=== PATIENT | male | born 1940 | race Caucasian/White ===

== ENCOUNTER → 2016-07-22 | Outpatient (CLI) | payer MEDICARE, OTHER ==
[~2016-07-22] MED LIST: APIX5TAB PO; ASCO100083 PO; ASP325TEC PO; ASPI-983 PO; ASPI-999 PO; BENEFIBER; CARV6.25 PO; CARV6.252 PO; CEFU500T5 PO; CLOP75TA PO; CLOP75TA28 PO; DICL50TA4 PO; DIGO125T PO; DIGO125T18 PO; DIGO250T PO; DIGO250T15 PO; DILT120C PO; DILT120C63 PO; DOCU100C37 PO; DONE5TAB8 PO; ENOX100D4 SC; FAMO20TA5 PO; FEXO-14 PO; FRSM20T PO; FURO20TA4 PO; FURO40TA4 PO; GARL1CAP7 PO; GARLIC; HYDR-3812 PO; IBUPROFEN; IPRA3AMP IH; IPRA3AMP INH; ISM30TCR PO; ISOS30TA3 PO; LEVO750T39 PO; LISI-556 PO; LISI5TAB PO; LOSA25TA21 PO; MAGN400T6 PO; METO-333 PO; METO2.5T PO; MYLANTA; NTR.4SL SL; OMEG1CAP74 PO; POTA10CA43 PO; POTA10TA10 PO; SACU1TAB PO; SIMV20TA3 PO; SIMV40TA4 PO; WARF-48 PO; WARF10TA PO; WARF7.5T49 PO
--- NOTE | 2016-07-23 06:57 | ECHOCARDIOGRAPHY REPORT ---
DATE OF SERVICE: 07/22/2016 2D ECHOCARDIOGRAM REFERRING PHYSICIAN: Dr. Nola Perez. INDICATION: Congestive heart failure. MEASUREMENT: LVID end diastolic 5.8. IVS thickness 0.9. LVPW thickness 1.0. Left atrial diameter of 4.4. Ejection fraction 35%. FINDINGS: 1. The left ventricle is dilated with diffuse left ventricular hypokinesia, more pronounced at the anterior wall, anterolateral wall, anterior septum and true lateral wall. Systolic function is reduced with estimated ejection fraction 35%, no significant change compared to the study of 02/2016. 2. The left atrium is dilated. No clot or thrombus were seen within the left atrium. 3. The right atrium and right ventricle are prominent. No clots or thrombus were seen within the right side, pacemaker leads were noted in the right heart chambers. 4. 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 No mitral valve prolapse. No mitral valve stenosis. 5. Aortic valve is trileaflet with normal opening and closing pattern, mild aortic regurgitation noted by color Doppler flow. 6. Tricuspid valve is normal in morphology with mild tricuspid regurgitation noted by color Doppler flow. Doppler across the tricuspid valve estimated pulmonary artery pressure of 9+ right atrial pressure. 7. Pulmonic valve is functioning normally. 8. No pericardial effusion. CONCLUSION: 1. Dilated left ventricle with diffuse left ventricular hypokinesia, more pronounced at the anterior wall, anterolateral wall, anterior septum, true lateral wall, systolic function is reduced with estimated ejection fraction 35%, no significant change compared to the study of 02/2016. 2. Left atrial dilatation with prominent right heart chambers. 3. Mild mitral regurgitation, mild tricuspid regurgitation. 4. Estimated pulmonary artery pressure of 15 mmHg. Job ID: [id number] DocumentID: [id number] Dictated Date: 07/22/2016 15:13:58 Telephone Sterilizer Date: 07/22/2016 21:50:04 Dictated By: JEIMY WAGNER MD
== END ==
LOC: CARD 10:27
PROVIDERS: ATTEND Internal Medicine Cardiovascular Disease
DX: I25.10 Atherosclerotic heart disease of native coronary artery without angina pectoris (principal); I50.22 Chronic systolic (congestive) heart failure; I65.23 Occlusion and stenosis of bilateral carotid arteries; I48.0 Paroxysmal atrial fibrillation; R06.02 Shortness of breath
CPT/HCPCS: 93306

== ENCOUNTER → 2018-06-01 | Outpatient (CLI) | payer MEDICARE, OTHER ==
[~2018-06-01] MED LIST changes: +ACHD5005 PO; +DILT-27 PO; -DILT120C PO; -DILT120C63 PO; +DILT120C94 PO; -HYDR-3812 PO; -IPRA3AMP IH; -IPRA3AMP INH; +IPRA3AMP31 IH; +IPRA3AMP31 INH; -LOSA25TA21 PO; +LOSA25TA41 PO
== END ==
LOC: CARD 12:08
PROVIDERS: ATTEND Physician Assistant
DX: I25.10 Atherosclerotic heart disease of native coronary artery without angina pectoris (principal); I65.23 Occlusion and stenosis of bilateral carotid arteries; R07.9 Chest pain, unspecified; I50.22 Chronic systolic (congestive) heart failure; R06.02 Shortness of breath; I08.3 Combined rheumatic disorders of mitral, aortic and tricuspid valves
CPT/HCPCS: 93306

== ENCOUNTER → 2018-06-02 | Outpatient (CLI) | payer MEDICARE, OTHER ==
[~2018-06-02] VITALS: Ht 182.9 cm; Wt 86.2 kg
[~2018-06-02] MED LIST changes: +CATHETER FLUSH 10 ML SYR IV PRN; +REGADENOSON 0.4 MG/5 ML SYR (LEXISCAN) IV ONE
[2018-06-02 12:45] VITALS: BP 121/84
--- NOTE | 2018-06-03 06:36 | STRESS TEST ---
DATE OF SERVICE: 06/02/2018 LEXISCAN MYOVIEW STRESS TEST REPORT REFERRING PHYSICIAN: Dr. Perez. Baseline heart rate is 92. Baseline blood pressure 139/81. Baseline EKG is ventricular paced rhythm with right bundle branch block morphology. In summary, the patient was injected with 10.77 mCi of technetium-99 Myoview and the resting images were obtained. Then, the patient received 0.4 mg of Lexiscan followed by 31.7 mCi of technetium-99 Myoview. Throughout the test, there were no EKG changes. The resting and stress images were reviewed and compared in the short axis, horizontal long axis, and vertical long axis views. Review of the images showed fix defect involving the whole inferior wall and inferolateral wall with subtle betsy-infarct ischemia. SSS is 21. SDS 2. TID value 0.89. On the gated images, the left ventricle is dilated with severe diffuse left ventricular hypokinesia, more pronounced at the inferior wall. Calculated ejection fraction 35%. CONCLUSION: 1. The patient tolerated Lexiscan well. 2. Total infarction of the whole inferior wall and inferolateral segment with mild periinfarct ischemia. 3. Dilated left ventricle with diffuse left ventricular hypokinesia, more pronounced at the inferior wall. Calculated ejection fraction 35%. Job ID: [id number] DocumentID: [id number] Dictated Date: 06/03/2018 06:19:04 Profiling Machine Setup Operator Date: 06/03/2018 06:35:02 Dictated By: JEIMY WAGNER MD
== END ==
LOC: CARD 10:42
PROVIDERS: ATTEND Physician Assistant
DX: I25.10 Atherosclerotic heart disease of native coronary artery without angina pectoris (principal); R07.9 Chest pain, unspecified; I50.9 Heart failure, unspecified; R06.02 Shortness of breath
CPT/HCPCS: 78452; 93017

== ENCOUNTER → 2020-07-19 | Outpatient (CLI) | payer MEDICARE, OTHER ==
[~2020-07-19] MED LIST changes: +ASPI-1238 PO; -ASPI-983 PO; -CATHETER FLUSH 10 ML SYR IV PRN; -DIGO250T PO; +DIGO250T3 PO; +DILT120C88 PO; -DILT120C94 PO; -ISOS30TA3 PO; +ISOS30TA82 PO; -LISI-556 PO; +LISI-729 PO; -MAGN400T6 PO; +MAGN400T8 PO; -REGADENOSON 0.4 MG/5 ML SYR (LEXISCAN) IV ONE; -SACU1TAB PO; +SACU1TAB2 PO; +SIMV20TA26 PO; -SIMV20TA3 PO; +SIMV40TA25 PO; +WARF7.5T3 PO; -WARF7.5T49 PO
== END ==
LOC: CARD 14:00
PROVIDERS: ATTEND Internal Medicine Cardiovascular Disease
DX: I11.9 Hypertensive heart disease without heart failure (principal); I08.3 Combined rheumatic disorders of mitral, aortic and tricuspid valves; I25.10 Atherosclerotic heart disease of native coronary artery without angina pectoris
CPT/HCPCS: 93306

== ENCOUNTER 2022-02-06 20:22 | Observation (INO) | payer MEDICARE, OTHER ==
[~2022-02-06] VITALS: Ht 182.9 cm; Wt 85.9 kg
[~2022-02-06 20:22] MED LIST changes: +LEVO750T PO; -LEVO750T39 PO; -LISI-729 PO; +LISI5TAB20 PO; -MAGN400T8 PO; +MGX400T PO
--- NOTE | 2022-02-06 21:17 | Diagnostic Imaging Report ---
EXAMINATION: Chest 1 view HISTORY: Shortness of breath. COMPARISON: 02/19/2016. FINDINGS: The lung volumes are normal. Patchy opacities are seen in the left lung base. No large pleural effusion or pneumothorax is seen. The cardiac silhouette is prominent with post-CABG changes. Left pectoral ICD is in place. No acute osseous abnormality is seen. IMPRESSION: 1. Patchy left basilar opacities which may represent atelectasis or infection. 2. Cardiomegaly. No overt pulmonary edema. Dictated by: Dictated on workstation # [id number]
[2022-02-06 21:26] LABS: BASOPHILS # (AUTO) 0.1 10^3/uL (0.0-0.1); BASOPHILS % (AUTO) 1 % (0-10); EOSINOPHILS # (AUTO) 0.4 10^3/uL (0.0-0.3); EOSINOPHILS % (AUTO) 6 % (0-10); HEMATOCRIT 29 % (40-54); HEMOGLOBIN 9.1 g/dL (13.3-17.7); LYMPHOCYTES # (AUTO) 0.5 10^3/uL (1.0-4.0); LYMPHOCYTES % (AUTO) 6 % (12-44); MEAN CORPUSCULAR HEMOGLOBIN 28 pg (25-34); MEAN CORPUSCULAR HGB CONC 32 g/dL (32-36); MEAN CORPUSCULAR VOLUME 87 fL (80-99); MONOCYTES # (AUTO) 0.8 10^3/uL (0.0-1.0); MONOCYTES % (AUTO) 9 % (0-12); NEUTROPHILS # (AUTO) 6.2 10^3/uL (1.8-7.8); NEUTROPHILS % (AUTO) 78 % (42-75); PLATELET COUNT 95 10^3/uL (130-400)
[2022-02-06 21:38] LABS: ALBUMIN 4.1 GM/DL (3.2-4.5); POTASSIUM 4.7 MMOL/L (3.6-5.0)
[2022-02-06 21:39] LABS: CALCIUM 9.2 MG/DL (8.5-10.1)
[2022-02-06 21:41] LABS: TOTAL PROTEIN 6.8 GM/DL (6.4-8.2)
[2022-02-06 21:42] LABS: BILIRUBIN,TOTAL 2.4 MG/DL (0.1-1.0)
[2022-02-06 21:44] LABS: CREATININE SERUM 3.58 MG/DL (0.60-1.30)
[2022-02-06 21:47] LABS: MAGNESIUM 2.9 MG/DL (1.6-2.4)
[2022-02-06 22:12] LABS: ANISOCYTOSIS SLIGHT; EOSINOPHILS % (MANUAL) 6 %; HYPOCHROMASIA SLIGHT; LYMPHOCYTES % (MANUAL) 5 %; MONOCYTES % (MANUAL) 8 %; NEUTROPHILS % (MANUAL) 81 %; POIKILOCYTOSIS SLIGHT
[2022-02-06 22:15] LABS: INR 5.6 (0.8-1.4); PROTHROMBIN TIME PATIENT 50.3 SEC (12.2-14.7)
[2022-02-06 22:44] LABS: BILIRUBIN,URINE NEGATIVE (NEGATIVE); CLARITY,URINE CLEAR; COLOR,URINE YELLOW; GLUCOSE, URINE (UA) NEGATIVE (NEGATIVE); KETONES,URINE NEGATIVE (NEGATIVE); LEUKOCYTE ESTERASE ,URINE NEGATIVE (NEGATIVE); NITRITE,URINE NEGATIVE (NEGATIVE); PROTEIN,URINE NEGATIVE (NEGATIVE)
[2022-02-06 22:51] LABS: BACTERIA,URINE TRACE /HPF; HYALINE CASTS, URINE 0-2 /LPF
--- NOTE | 2022-02-06 23:15 | ED General ---
General Chief Complaint: General Problems/Pain Stated Complaint: LOW BP,ABD PAIN,LOW KIDNEY FUNCTION Nursing Triage Note: TO ED VIA POV AND WHEN NAME CALLED FOR TRIAGE PT STANDS AND BEGINS WALKING TOWARDS ROOM WITH PERSONAL WALKER, BUT FAMILY MEMBER DEMANDED W/C TO ROOM 6. PT STATES HE HAS HAD "TROUBLE BREATHING FOR A COUPLE WEEKS". O2 SAT 100% ON ROOM AIR. PT SPEAKS OVER PT AND ANSWERS MOST QUESTIONS. STATES, "HE WENT TO DR. JORDAN TODAY, SHE'S JUST A DOCTOR, AND SHE CALLED DR. SABA. 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 JORDAN CALLED HER WITH THE RESULTS AND STATED "HIS KIDNEY FUNCTION DETERIORATED AND HIS POTASSIUM WAS OKAY, BUT CHANCY". PT IS FULLY CAPABLE OF ANSWERING QUESTIONS AND HAD TO BE ASKED SEVERAL TIMES TO LET PT ANSWER TO COMPLETE TRIAGE. Source of Information: Patient Exam Limitations: No Limitations History of Present Illness Date Seen by Provider: Feb 06, 2022 Time Seen by Provider: 20:42 Initial Comments This 81-year-old gentleman presents to the emergency room at the direction of his primary team which includes Dr. Jordan, PCP in [place] and Dr. Saba ([facility] ologist). He reportedly was seen at Dr. JORDAN's office this morning and had lab work obtained as well as an abdominal ultrasound. There were concerns about his renal function, anemia, and ascites seen on the abdominal ultrasound. These are reportedly newer developments in his health history. In reviewing records from [place], he has a hemoglobin of 8.8 this morning down from 12.8 in March of last year. His creatinine is 3.64 this morning, up from 1.86 in September. He reports history of congestive heart failure and atrial fibrillation. He is anticoagulated with warfarin. INR was not performed on the labs this morning. He did take warfarin this morning. Patient describes occasionally feeling a little bit dizzy. He denies any acute fever. He has had minimal cough. He reports increased shortness of breath over the past 2 to 3 weeks which is intermittent. He has chronic musculoskeletal pain particularly in his back and shoulders, but no acute change. He has had recent weight gain and recent abdominal distention, but no associated pain in the abdomen. Patient takes metolazone twice weekly if his blood pressure is greater than 100 systolic. His last dose of metolazone was Thursday or Thursday. Allergies and Home Medications Allergies Coded Allergies: Penicillins (Verified Allergy, Unknown, 04/26/08) Patient Home Medication List Home Medication List Reviewed: Yes Aspirin (Aspirin EC) 81 Mg Tablet.dr, 81 MG PO EVERY EVENING, (Reported) Entered as Reported by: BHARAT NAYAK on 07/17/15 1348 Carvedilol (Carvedilol) 6.25 Mg Tablet, 6.25 MG PO BID, (Reported) Entered as Reported by: BHARAT NAYAK on 07/17/15 1241 Digoxin (Digox) 125 Mcg Tablet, 125 MCG PO DAILY, (Reported) Entered as Reported by: BHARAT NAYAK on 07/17/15 1241 Docusate Sodium (Docusate Sodium) 100 Mg Capsule, 200 MG PO HS, (Reported) Entered as Reported by: CAMI PRECIADO on 02/19/16 1225 Famotidine (Famotidine) 20 Mg Tablet, 20 MG PO BID, (Reported) Entered as Reported by: BHARAT NAYAK on 05/07/15 1112 Fexofenadine HCl (Heather Allergy) 60 Mg Tablet, 60 MG PO BID, (Reported) Entered as Reported by: HAYLEY HERRMANN on 05/04/15 1121 Furosemide (Furosemide) 40 Mg Tablet, 80 MG PO BID, (Reported) Entered as Reported by: BHARAT NAYAK on 10/04/15 0939 Hydrocodone Bit/Acetaminophen (Lortab 5 Mg Tablet) 1 Each Tablet, 0.5-1 TAB PO Q6H PRN for PAIN Prescribed by: HERO WORKMAN on 01/04/16 1239 Isosorbide Mononitrate (Isosorbide Mononitrate ER) 30 Mg Tab.er.24h, 30 MG PO DAILY, (Reported) Entered as Reported by: BHARAT NAYAK on 05/07/15 1112 Metolazone (Metolazone) 2.5 Mg Tablet, 2.5 MG PO UD, (Reported) Entered as Reported by: CAMI PRECIADO on 02/19/16 1225 [place]-3/Dha/Epa/Fish Oil (Fish Oil 1,000 Mg Softgel) 1,000 Mg Capsule, 1,000 MG PO HS, (Reported) Entered as Reported by: THERON RODRIGUEZ on 02/13/10 1006 Potassium Chloride (Potassium Chloride) 10 Meq Tablet.er, 10 MEQ PO DAILY, (Reported) Entered as Reported by: BHARAT NAYAK on 05/07/15 1112 Sacubitril/Valsartan (Entresto 24 mg-26 mg Tablet) 1 Each Tablet, 1 EACH PO BID Prescribed by: JEIMY SABA on 01/06/16 0909 Warfarin Sodium (Warfarin Sodium) 5 Mg Tablet, 10 MG PO UD, (Reported) Entered as Reported by: CAMI PRECIADO on 02/19/16 1225 Warfarin Sodium (Warfarin Sodium) 5 Mg Tablet, 7.5 MG PO UD, (Reported) Entered as Reported by: CAMI PRECIADO on 02/19/16 1225 Review of Systems Review of Systems Constitutional: no symptoms reported EENTM: no symptoms reported Respiratory: see HPI Cardiovascular: see HPI Gastrointestinal: see HPI Genitourinary: see HPI Musculoskeletal: no symptoms reported Skin: no symptoms reported Psychiatric/Neurological: No Symptoms Reported Hematologic/Lymphatic: See HPI Immunological/Allergic: no symptoms reported Past Afvkwvt-Gqxpvy-Gktlpy Hx Patient Social History Tobacco Use?: No Smoking Status: Former Smoker Substance use?: No Alcohol Use?: No Immunizations Up To Date Tetanus Booster (TDap): Unknown PED Vaccines UTD: No Influenza Vaccine Up-to-Date: No; Not Current COVID19 Vaccine Instrument Tester: STATES HAS HAD 2 VACCINES PLUS BOOSTER Seasonal Allergies Seasonal Allergies: Yes Past Medical History Surgeries: Yes Cardiac, CABG, Defibrillator, Eye Surgery, Gallbladder, Orthopedic (Back), Pacemaker Respiratory: Yes Sleep Apnea Currently Using CPAP: Yes (SENT IT BACK, BECAUSE PATIENT COULD NOT TOLERATE ) Currently Using BIPAP: No Cardiac: Yes (Congestive heart failure) Atrial Fibrillation, Chronic Edema/Swelling, Coronary Artery Disease, Heart Attack, High Cholesterol, Hypertension TIA Reproductive Disorders: No Sexually Transmitted Disease: No HIV/AIDS: No Genitourinary: Yes Benign Prostatic Hyperpl Gastrointestinal: Yes Liver Disease/Jaundice, Chronic Constipation, Pancreatitis, Gall Bladder Disease Musculoskeletal: Yes Arthritis, Chronic Back Pain Loss of Vision: Denies Hearing Impairment: Hard of Hearing Psychosocial: No Depression Recent Skin Changes Adverse Reaction/Blood Tranf: No Family Medical History Patient reports no known family medical history. No Pertinent Family Hx Physical Exam Vital Signs Vital Signs - First Documented 02/06/22 20:38 Temp 36.2 Pulse 90 Resp 16 B/P (MAP) 105/91 (96) Pulse Ox 100 O2 Delivery Room Air Capillary Refill : Less Than 3 Seconds Height, Weight, BMI Height: 6'0.00" Weight: 190lbs. 0.0oz. 86.129456ir; 24.00 BMI Method:Stated General Appearance: No Apparent Distress, WD/WN HEENT: PERRL/EOMI, Normal ENT Inspection, Other (Oropharynx somewhat dry) Neck: Normal Inspection; No JVD Respiratory: Lungs Clear, Normal Breath Sounds, No Accessory Muscle Use, No Respiratory Distress Cardiovascular: Regular Rate, Rhythm, No Edema, No Murmur, Other (Paced rhythm on monitor) Gastrointestinal: Normal Bowel Sounds, Non Tender, Soft, Distended Extremity: Normal Inspection, No Pedal Edema Neurologic/Psychiatric: Alert, Oriented x3, No Motor/Sensory Deficits, Normal Mood/Affect Skin: Normal Color, Warm/Dry Progress/Results/Core Measures Suspected Sepsis SIRS Temperature: Pulse: 90 Respiratory Rate: 16 Laboratory Tests 02/06/22 21:15: White Blood Count 8.0 Blood Pressure 105 /91 Mean: 96 Laboratory Tests 02/06/22 21:15: Creatinine 3.58H, INR Comment 5.6*H, Platelet Count 95L, Total Bilirubin 2.4H Results/Orders Lab Results Laboratory Tests Test 02/06/22 21:15 02/06/22 21:52 02/06/22 22:39 Range/Units White Blood Count 8.0 4.3-11.0 10^3/uL Red Blood Count 3.30 L 4.30-5.52 10^6/uL Hemoglobin 9.1 L 13.3-17.7 g/dL Hematocrit 29 L 40-54 % Mean Corpuscular Volume 87 80-99 fL Mean Corpuscular Hemoglobin 28 25-34 pg Mean Corpuscular Hemoglobin Concent 32 32-36 g/dL Red Cell Distribution Width 18.6 H 10.0-14.5 % Platelet Count 95 L 130-400 10^3/uL Mean Platelet Volume 13.0 H 9.0-12.2 fL Immature Granulocyte % (Auto) 0 % Neutrophils (%) (Auto) 78 H 42-75 % Lymphocytes (%) (Auto) 6 L 12-44 % Monocytes (%) (Auto) 9 0-12 % Eosinophils (%) (Auto) 6 0-10 % Basophils (%) (Auto) 1 0-10 % Neutrophils # (Auto) 6.2 1.8-7.8 10^3/uL Lymphocytes # (Auto) 0.5 L 1.0-4.0 10^3/uL Monocytes # (Auto) 0.8 0.0-1.0 10^3/uL Eosinophils # (Auto) 0.4 H 0.0-0.3 10^3/uL Basophils # (Auto) 0.1 0.0-0.1 10^3/uL Immature Granulocyte # (Auto) 0.0 0.0-0.1 10^3/uL Neutrophils % (Manual) 81 % Lymphocytes % (Manual) 5 % Monocytes % (Manual) 8 % Eosinophils % (Manual) 6 % Percent Immature Platelet Fraction 7.1 0.0-7.6 % Hypochromasia SLIGHT Poikilocytosis SLIGHT Anisocytosis SLIGHT Prothrombin Time 50.3 *H 12.2-14.7 SEC INR Comment 5.6 *H 0.8-1.4 Sodium Level 135 135-145 MMOL/L Potassium Level 4.7 3.6-5.0 MMOL/L Chloride Level 100 98-107 MMOL/L Carbon Dioxide Level 20 L 21-32 MMOL/L Anion Gap 15 H 5-14 MMOL/L Blood Urea Nitrogen 93 H 7-18 MG/DL Creatinine 3.58 H 0.60-1.30 MG/DL Estimat Glomerular Filtration Rate 16 BUN/Creatinine Ratio 26 Glucose Level 139 H 70-105 MG/DL Calcium Level 9.2 8.5-10.1 MG/DL Corrected Calcium 9.1 8.5-10.1 MG/DL Magnesium Level 2.9 H 1.6-2.4 MG/DL Total Bilirubin 2.4 H 0.1-1.0 MG/DL Aspartate Amino Transf (AST/SGOT) 31 5-34 U/L Alanine Aminotransferase (ALT/SGPT) 26 0-55 U/L Alkaline Phosphatase 75 40-136 U/L C-Reactive Protein High Sensitivity 0.56 H 0.00-0.50 MG/DL B-Type Natriuretic Peptide 1442.9 H <100.0 PG/ML Total Protein 6.8 6.4-8.2 GM/DL Albumin 4.1 3.2-4.5 GM/DL Digoxin Level 0.59 L 0.80-2.00 NG/ML Influenza Type A (RT-PCR) Not Detected Not Detecte Influenza Type B (RT-PCR) Not Detected Not Detecte SARS-CoV-2 RNA (RT-PCR) Not Detected Not Detecte Urine Color YELLOW Urine Clarity CLEAR Urine pH 6.0 5-9 Urine Specific [place] 1.015 L 1.016-1.022 Urine Protein NEGATIVE NEGATIVE Urine Glucose (UA) NEGATIVE NEGATIVE Urine Ketones NEGATIVE NEGATIVE Urine Nitrite NEGATIVE NEGATIVE Urine Bilirubin NEGATIVE NEGATIVE Urine Urobilinogen 0.2 < = 1.0 MG/DL Urine Leukocyte Esterase NEGATIVE NEGATIVE Urine RBC (Auto) NEGATIVE NEGATIVE Urine RBC NONE /HPF Urine WBC NONE /HPF Urine Squamous Epithelial Cells NONE /HPF Urine Crystals NONE /LPF Urine Bacteria TRACE /HPF Urine Casts PRESENT /LPF Urine Hyaline Casts 0-2 H /LPF Urine Mucus NEGATIVE /LPF Urine Culture Indicated NO My Orders Orders - KRISTAL POTTS MD [facility] [place] (02/06/22 20:56) Cbc With Automated Diff (02/06/22 20:56) Comprehensive Metabolic Panel (02/06/22 20:56) Magnesium (02/06/22 20:56) Protime With Inr (02/06/22 20:56) Ua Culture If Indicated (02/06/22 20:56) Ed Iv/Invasive Line Start (02/06/22 20:56) Chest 1 View, Ap/Pa Only (02/06/22 20:56) Manual Differential (02/06/22 21:15) Covid 19 Inhouse Test (02/06/22 21:48) Influenza A And B By Pcr (02/06/22 21:48) Hs C Reactive Protein (02/06/22 21:49) Ct Abdomen/Pelvis Wo (02/06/22 22:48) Digoxin (02/06/22 23:22) Ns Iv 1000 Ml (Sodium Chloride 0.9%) (02/07/22 00:30) Code/Resuscitation (02/07/22 00:32) Vital Signs/I&O 02/06/22 02/06/22 20:38 20:38 Temp 36.2 Pulse 90 Resp 16 B/P (MAP) 105/91 (96) Pulse Ox 100 O2 Delivery Room Air Room Air Capillary Refill : Less Than 3 Seconds Blood Pressure Mean: 96 Progress Note #1: Time: 23:26 Progress Note Labs from [place] were reviewed. Repeat labs were obtained. The creatinine and hemoglobin actually demonstrated improvement from earlier in the day. Patient has had no significant acute complaints since arrival. INR was found to be elevated at 5.6. Because of the elevated INR and ascites noted on ultrasound, we are obtaining a CT of the abdomen to ensure the abdominal fluid is not related to bleeding. Patient denies any abdominal pain at this time. Vital signs of been stable. His blood pressure has been low normotensive with systolic blood pressures in the 100s. Patient states this is his normal blood pressure. Progress Note #2: Time: 00:38 Progress Note After reviewing exam, vital signs, and labs with Dr. Cameron. It appears perhaps the best treatment course at this time is slow IV hydration. Patient does not appear to be in acute heart failure as there is no edema or congestion seen on the chest x-ray and he is not acutely short of breath at this time. He would actually probably benefit more from slow IV fluids. Normal saline at 75 mL/h is being ordered x1 L as a fluid challenge. We will monitor his renal function and heart failure with these fluids. INR will be checked again in the morning. Patient's most recent systolic blood pressures were around 90 systolic. He is asymptomatic with this blood pressure. This marginal blood pressure supports the need for hydration. I discussed CODE STATUS with the patient and he requests to be DNR. Diagnostic Imaging Diagonstic Imaging: Xray Plain Films/CT/US/NM/MRI: chest Comments Chest x-ray viewed by me and report reviewed. See report below: NAME: LADONNA ZEE [facility] REC#: [id number] PT STATUS: REG ER : 1940 PHYSICIAN: KRISTAL POTTS MD ADMIT DATE: 02/06/22/ER Signed Date of Exam:02/06/22 CHEST 1 VIEW, AP/PA ONLY EXAMINATION: Chest 1 view HISTORY: Shortness of breath. COMPARISON: 02/19/2016. FINDINGS: The lung volumes are normal. Patchy opacities are seen in the left lung base. No large pleural effusion or pneumothorax is seen. The cardiac silhouette is prominent with post-CABG changes. Left pectoral ICD is in place. No acute osseous abnormality is seen. IMPRESSION: 1. Patchy left basilar opacities which may represent atelectasis or infection. 2. Cardiomegaly. No overt pulmonary edema. Dictated by: Dictated on workstation # [id number] Dict: 02/06/222114 Trans: 02/06/222132 CVB [id number] Interpreted by: LUNA ALONZO DO Electronically signed by: LUNA ALONZO DO 02/06/222132 Departure Communication (Admissions) Time/Spoke to Admitting Phy: 00:10 Dr. Cameron Case was reviewed with Dr. Saba earlier in the evening at 2052. Impression Primary Impression: Acute on chronic renal failure Qualified Codes: N17.9 - Acute kidney failure, unspecified; N18.9 - Chronic kidney disease, unspecified Additional Impressions: Congestive heart failure Qualified Codes: I50.9 - Heart failure, unspecified Abdominal ascites Qualified Codes: R18.8 - Other ascites Supratherapeutic INR Disposition: ADMITTED INPATIENT Condition: Stable Admissions Decision to Admit Reason: Admit from ER (General) Decision to Admit/Date: Feb 07, 2022 Time/Decision to Admit Time: 00:10 Departure-Patient Inst. Referrals: JOCELYN OJRDAN MD (PCP/Family) Primary Care Physician Copy Copies To 1: JOCELYN JORDAN MD Copies To 2: JEIMY SABA MD, JOSHUA T MD Feb 06, 2022 23:15
[2022-02-07] MEDS ORDERED: NS IV 1000 ML 1,000 ML IV STA (00:30)
[2022-02-07 01:15] VITALS: BP 92/51
[2022-02-07 04:22] VITALS: BP 93/52
[2022-02-07 06:27] LABS: BASOPHILS # (AUTO) 0.1 10^3/uL (0.0-0.1); BASOPHILS % (AUTO) 1 % (0-10); HEMOGLOBIN 8.6 g/dL (13.3-17.7); MEAN CORPUSCULAR HEMOGLOBIN 27 pg (25-34)
[2022-02-07 06:30] LABS: EOSINOPHILS # (AUTO) 0.3 10^3/uL (0.0-0.3); EOSINOPHILS % (AUTO) 5 % (0-10); HEMATOCRIT 28 % (40-54); LYMPHOCYTES # (AUTO) 0.4 10^3/uL (1.0-4.0); LYMPHOCYTES % (AUTO) 6 % (12-44); MEAN CORPUSCULAR HGB CONC 31 g/dL (32-36); MEAN CORPUSCULAR VOLUME 88 fL (80-99); MEAN PLATELET VOLUME 12.2 fL (9.0-12.2); MONOCYTES # (AUTO) 0.6 10^3/uL (0.0-1.0); MONOCYTES % (AUTO) 10 % (0-12); NEUTROPHILS # (AUTO) 5.1 10^3/uL (1.8-7.8); NEUTROPHILS % (AUTO) 78 % (42-75); PLATELET COUNT 83 10^3/uL (130-400); WHITE BLOOD COUNT 6.5 10^3/uL (4.3-11.0)
[2022-02-07 06:44] LABS: CALCIUM 8.7 MG/DL (8.5-10.1); CREATININE SERUM 3.52 MG/DL (0.60-1.30); POTASSIUM 4.8 MMOL/L (3.6-5.0)
[2022-02-07 07:02] LABS: INR 6.3 (0.8-1.4); PROTHROMBIN TIME PATIENT 55.1 SEC (12.2-14.7)
--- NOTE | 2022-02-07 07:02 | History & Physical-Hospitalist ---
History of Present Illness HPI/Chief Complaint Patient is an 81-year-old male with past medical history of cardiomyopathy, hypertension, chronic kidney disease who presented to the emergency department due to abnormal labs. He states that he was seen by his primary care physician, Dr. Perez, due to abdominal bloating. Labs were drawn and abdominal ultrasound was done as an outpatient. His labs revealed worsening of his renal function and some ascites. Labs were repeated here and confirmed an acute kidney injury. He was also found to have a supratherapeutic INR. He was admitted for gentle IV fluids. This morning he reports feeling much better. We discussed his labs from yesterday to the emergency department and held today's are pending. We did discuss how we may need to hold some of his medications due to his acute kidney injury but will await his morning lab results to decide. Source: patient Date Seen 02/07/22 Time Seen by a Provider: 06:59 Attending Physician Nola Perez MD PCP Admitting Physician: Keenan Cameron MD Attending Physician: Keenan Cameron MD Referring Physician Date of Admission Feb 07, 2022 at 00:36 Home Medications & Allergies Home Medications Reviewed patient Home Medication Reconciliation performed by pharmacy medication reconciliations bio medical technician and/or nursing. Patients Allergies have been reviewed. Allergies Allergies Coded Allergies Penicillins (Verified Allergy, Unknown, 04/26/08) Past Wpxcpha-Rzlpcj-Dzlycv Hx Patient Social History Marrital Status: Employed/Student: retired Tobacco Use?: No Tobacco type used: Cigarettes Smoking Status: Former Smoker Smokeless Tobacco Frequency: Never a User Use of E-Cig and/or Vaping dev: No Substance use?: No Alcohol Use?: Yes Alcohol type: Beer Alcohol Frequency: Once in a while Pt feels they are or have been: No Immunizations Up To Date Tetanus Booster (TDap): Unknown Hepatitis A: No Hepatitis B: No PED Vaccines UTD: No Seasonal Allergies Seasonal Allergies: Yes Current Status Advance Directives: Yes Advance Directive Location: Unable to obtain copy Communicates: Verbally Primary Language: Danish Preferred Spoken Language: Danish Is interpretation needed?: No Sensory deficits: Vision impairment Implanted or Applied Medical D: Pacemaker Past Medical History Surgeries: Cardiac, CABG, Defibrillator, Eye Surgery, Gallbladder, Orthopedic (Back), Pacemaker Sleep Apnea Currently Using CPAP: Yes (SENT IT BACK, BECAUSE PATIENT COULD NOT TOLERATE ) Currently Using BIPAP: No Atrial Fibrillation, Chronic Edema/Swelling, Coronary Artery Disease, Heart Attack, High Cholesterol, Hypertension TIA Sexually Transmitted Disease: No HIV/AIDS: No Benign Prostatic Hyperpl Liver Disease/Jaundice, Chronic Constipation, Pancreatitis, Gall Bladder Disease Arthritis, Chronic Back Pain Loss of Vision: Denies Hearing Impairment: Hard of Hearing Depression Recent Skin Changes Adverse Reaction/Blood Tranf: No Family Medical History Reviewed Nursing Family Hx Patient reports no known family medical history. No Pertinent Family Hx Review of Systems Constitutional: No chills, No fever; malaise EENTM: no symptoms reported Respiratory: no symptoms reported Cardiovascular: no symptoms reported Gastrointestinal: other (distention) Genitourinary: no symptoms reported Musculoskeletal: no symptoms reported Skin: no symptoms reported Psychiatric/Neurological: No Symptoms Reported Physical Exam Physical Exam Vital Signs Vital Signs - First Documented 02/06/22 20:38 Temp 36.2 Pulse 90 Resp 16 B/P (MAP) 105/91 (96) Pulse Ox 100 O2 Delivery Room Air Capillary Refill : Less Than 3 Seconds Height, Weight, BMI Height: 6'0.00" Weight: 190lbs. 0.0oz. 86.344543xx; 25.67 BMI Method:Stated General Appearance: No Apparent Distress, Chronically ill HEENT: PERRL/EOMI, Moist Mucous Membranes, Scleral Icterus (L), Scleral Icterus (R) Neck: Normal Inspection, Supple Respiratory: Lungs Clear, No Accessory Muscle Use, No Respiratory Distress Cardiovascular: Regular Rate, Rhythm, No JVD, No Murmur Gastrointestinal: Normal Bowel Sounds, Soft, Distended Extremity: Normal Capillary Refill, Pedal Edema Neurologic/Psychiatric: Alert, Oriented x3, Normal Mood/Affect Skin: Warm/Dry, Jaundice Results Results/Procedures Labs Laboratory Tests 02/06/22 21:15 02/07/22 05:47 Patient resulted labs reviewed. Imaging: Reviewed Imaging Report Imaging [facility] [place], [place] NAME: HEIDIATIFLADONNA ORTEZ REC#: [id number] PT STATUS: REG ER : 1940 PHYSICIAN: KRISTAL POTTS MD ADMIT DATE: 02/06/22/ER Signed Date of Exam:02/06/22 CHEST 1 VIEW, AP/PA ONLY EXAMINATION: Chest 1 view HISTORY: Shortness of breath. COMPARISON: 02/19/2016. FINDINGS: The lung volumes are normal. Patchy opacities are seen in the left lung base. No large pleural effusion or pneumothorax is seen. The cardiac silhouette is prominent with post-CABG changes. Left pectoral ICD is in place. No acute osseous abnormality is seen. IMPRESSION: 1. Patchy left basilar opacities which may represent atelectasis or infection. 2. Cardiomegaly. No overt pulmonary edema. Dictated by: Dictated on workstation # [id number] Dict: 02/06/222114 Trans: 02/06/222132 CVB [id number] Interpreted by: LUNA ALONZO DO Electronically signed by: LUNA ALONZO DO 02/06/222132 [facility] [place] NAME: LADONNA ZEE [facility] REC#: [id number] PT STATUS: ADM Milagro : 1940 PHYSICIAN: KRISTAL POTTS MD ADMIT DATE: 02/07/22 Signed Date of Exam:02/06/22 CT ABDOMEN/PELVIS WO CT ABDOMEN/PELVIS WO TECHNIQUE: Unenhanced CT imaging of the abdomen and pelvis was performed. 2-D reformats are created and submitted for interpretation. Automatic exposure controls were utilized to optimize patient dose. INDICATION: Abdominal swelling COMPARISON: 05/11/2015 FINDINGS: Lower chest: Small left pleural effusion. Scattered areas of atelectasis present in the lung bases. Peritoneum: A small to moderate amount of simple appearing ascites is present. No loculated fluid collections or free intraperitoneal air. Liver and biliary system: Nodular liver is indicative of cirrhosis. No focal hepatic lesion is appreciated by noncontrast imaging. Cholecystectomy. No biliary duct dilatation. Spleen and Pancreas: Spleen is normal. Unenhanced pancreas is grossly normal. Adrenals: Normal. tract: No renal or ureteral calculi. No obstructive uropathy. There is a 3.8 x 3.5 cm exophytic cyst in the mid aspect of the right kidney. Urinary bladder is partially filled. Prostate is not enlarged. GI tract: Stomach is decompressed. No bowel obstruction. No pericolonic inflammatory changes. No features of acute appendicitis. Vasculature and Lymph nodes: Normal caliber aorta has severe calcification. No abdominal or pelvic lymphadenopathy. Musculoskeletal: No concerning osseous lesion. Multilevel laminectomies in the lower lumbar spine. IMPRESSION: 1. Cirrhosis with small to moderate amount of ascites. 2. Partially filled urinary bladder could account for wall thickening. Correlation with urinalysis is suggested to assess for cystitis. 3. Findings are in agreement with the preliminary report. Dictated by: Dictated on workstation # [id number] Dict: 02/07/22703 Trans: 02/07/22909 CV [id number] Interpreted by: CLAUS GARCIA MD Electronically signed by: CLAUS GARCIA MD 02/07/22909 Assessment/Plan Admission Diagnosis Acute on Chronic Kidney Disease Admission Status: Observation Reason for Inpatient Admission: see below Assessment and Plan Acute on Chronic Kidney Disease CHF HTN Ascites Creatinine stable Discussed with patient and and he is wanted to go home Offered home health and outpatient therapy orders- patient declined Discussed potential for hospice if patient not interested in therapy and strengthening- not yet ready for that but open to the idea Discussed respite care at [facility] as option for rest for and they will look into it Hold coumadin over the weekend and get INR on Thursday with Dr Saba Diagnosis/Problems Diagnosis/Problems (1) Abdominal ascites Status: Acute Qualifiers: Ascites type: other type Qualified Codes: R18.8 - Other ascites (2) Supratherapeutic INR (3) Acute on chronic renal failure Status: Acute Qualifiers: Acute renal failure type: unspecified Chronic kidney disease stage: unspecified stage Qualified Codes: N17.9 - Acute kidney failure, unspecified; N18.9 - Chronic kidney disease, unspecified (4) Congestive heart failure Status: Acute Qualifiers: Heart failure type: unspecified Heart failure chronicity: chronic Qualified Codes: I50.9 - Heart failure, unspecified (5) Chronic atrial fibrillation Status: Acute (6) Jaundice Status: Acute (7) Elevated bilirubin Status: Acute CHRISTA REAVES MD Feb 07, 2022 07:02
--- NOTE | 2022-02-07 07:13 | Diagnostic Imaging Report ---
CT ABDOMEN/PELVIS WO TECHNIQUE: Unenhanced CT imaging of the abdomen and pelvis was performed. 2-D reformats are created and submitted for interpretation. Automatic exposure controls were utilized to optimize patient dose. INDICATION: Abdominal swelling COMPARISON: 05/11/2015 FINDINGS: Lower chest: Small left pleural effusion. Scattered areas of atelectasis present in the lung bases. Peritoneum: A small to moderate amount of simple appearing ascites is present. No loculated fluid collections or free intraperitoneal air. Liver and biliary system: Nodular liver is indicative of cirrhosis. No focal hepatic lesion is appreciated by noncontrast imaging. Cholecystectomy. No biliary duct dilatation. Spleen and Pancreas: Spleen is normal. Unenhanced pancreas is grossly normal. Adrenals: Normal. tract: No renal or ureteral calculi. No obstructive uropathy. There is a 3.8 x 3.5 cm exophytic cyst in the mid aspect of the right kidney. Urinary bladder is partially filled. Prostate is not enlarged. GI tract: Stomach is decompressed. No bowel obstruction. No pericolonic inflammatory changes. No features of acute appendicitis. Vasculature and Lymph nodes: Normal caliber aorta has severe calcification. No abdominal or pelvic lymphadenopathy. Musculoskeletal: No concerning osseous lesion. Multilevel laminectomies in the lower lumbar spine. IMPRESSION: 1. Cirrhosis with small to moderate amount of ascites. 2. Partially filled urinary bladder could account for wall thickening. Correlation with urinalysis is suggested to assess for cystitis. 3. Findings are in agreement with the preliminary report. Dictated by: Dictated on workstation # [id number]
[2022-02-07 08:37] VITALS: BP 88/53
[2022-02-07] MEDS ORDERED: FUROSEMIDE 40 MG/4 ML INJ (LASIX) IVP SCH (08:45)
[2022-02-07] MEDS ORDERED: CATHETER FLUSH 10 ML SYR IV PRN (08:45)
[2022-02-07] MEDS ORDERED: SACU1TAB2 PO ×2 (11:55→13:10)
[2022-02-07] MEDS ORDERED: POTA-177 PO (11:55)
[2022-02-07] MEDS ORDERED: SPIR25TA5 PO (11:55)
[2022-02-07] MEDS ORDERED: ALLO300T2 PO (11:55)
[2022-02-07] MEDS ORDERED: SIMV10TA26 PO (11:55)
[2022-02-07] MEDS ORDERED: DIGO125T3 PO (11:55)
[2022-02-07] MEDS ORDERED: OMEG100032 PO ×2 (11:55)
[2022-02-07] MEDS ORDERED: CARV3.122 PO (11:55)
[2022-02-07] MEDS ORDERED: PANT40TA52 PO (11:55)
[2022-02-07] MEDS ORDERED: NF-ALLE180 PO (11:55)
[2022-02-07 12:00] VITALS: BP_SYST 74; BP_SYST 95; BP_DIAS 50; BP_DIAS 60
[2022-02-07] MEDS ORDERED: INSU100I32 SC (12:19)
--- NOTE | 2022-02-07 12:26 | Consultation-Cardiology ---
HPI-Cardiology Cardiology Consultation Date of Consultation 02/07/22 Date of Admission Time Seen by Provider: 12:21 Indication: Abdominal distention, ascites HPI 81 years old gentleman with history of cardiomyopathy, coronary artery disease, chronic kidney disease. Patient has been having increasing abdominal distention, generalized weakness and loss of energy, he was noted to have ascites and anemia. Elevated INR. Patient was instructed to come to the emergency room. On evaluation he was complaining of fatigue and tired. Denied any chest pain, no shortness of breath, no significant pedal edema. No syncope or near syncopal episodes. Home Medications & Allergies Allergies: Coded Allergies: Penicillins (Verified Allergy, Unknown, 04/26/08) Home Medication List Reviewed: Yes DGN-Pngsuz-Dkijlv Hx Patient Social History Marital Status: Employed/Student: retired Smoking Status: Former Smoker Type Used: Cigarettes, Smokeless Tobacco Recent Hopitalizations: Yes Have you traveled recently?: No Alcohol Use?: Yes Immunizations Up To Date Tetanus Booster (TDap): Unknown Past Medical History Discussed below Family Medical History Significant Family History: No Pertinent Family Hx Family History: Patient reports no known family medical history. Review of Systems-General Review of Systems Constitutional: see HPI, malaise, weakness EENTM: no symptoms reported Respiratory: see HPI; No cough; dyspnea on exertion; No hemoptysis, No orthopnea, No phlegm, No short of breath, No stridor, No wheezing, No other Cardiovascular: see HPI; No chest pain, No edema, No Hx of Intervention, No palpitations, No syncope, No vascular heart diseas, No other Gastrointestinal: see HPI, other (Increased abdominal distention) Genitourinary: see HPI Musculoskeletal: no symptoms reported Skin: no symptoms reported Psychiatric/Neurological: No Symptoms Reported Reviewed Test Results Reviewed Test Results Lab Laboratory Tests Test 02/06/22 21:15 02/06/22 21:52 02/06/22 22:39 02/07/22 05:47 Range/Units White Blood Count 8.0 6.5 4.3-11.0 10^3/uL Red Blood Count 3.30 L 3.20 L 4.30-5.52 10^6/uL Hemoglobin 9.1 L 8.6 L 13.3-17.7 g/dL Hematocrit 29 L 28 L 40-54 % Mean Corpuscular Volume 87 88 80-99 fL Mean Corpuscular Hemoglobin 28 27 25-34 pg Mean Corpuscular Hemoglobin Concent 32 31 L 32-36 g/dL Red Cell Distribution Width 18.6 H 18.2 H 10.0-14.5 % Platelet Count 95 L 83 L 130-400 10^3/uL Mean Platelet Volume 13.0 H 12.2 9.0-12.2 fL Immature Granulocyte % (Auto) 0 1 % Neutrophils (%) (Auto) 78 H 78 H 42-75 % Lymphocytes (%) (Auto) 6 L 6 L 12-44 % Monocytes (%) (Auto) 9 10 0-12 % Eosinophils (%) (Auto) 6 5 0-10 % Basophils (%) (Auto) 1 1 0-10 % Neutrophils # (Auto) 6.2 5.1 1.8-7.8 10^3/uL Lymphocytes # (Auto) 0.5 L 0.4 L 1.0-4.0 10^3/uL Monocytes # (Auto) 0.8 0.6 0.0-1.0 10^3/uL Eosinophils # (Auto) 0.4 H 0.3 0.0-0.3 10^3/uL Basophils # (Auto) 0.1 0.1 0.0-0.1 10^3/uL Immature Granulocyte # (Auto) 0.0 0.0 0.0-0.1 10^3/uL Neutrophils % (Manual) 81 % Lymphocytes % (Manual) 5 % Monocytes % (Manual) 8 % Eosinophils % (Manual) 6 % Percent Immature Platelet Fraction 7.1 7.4 0.0-7.6 % Hypochromasia SLIGHT Poikilocytosis SLIGHT Anisocytosis SLIGHT Prothrombin Time 50.3 *H 55.1 *H 12.2-14.7 SEC INR Comment 5.6 *H 6.3 *H 0.8-1.4 Sodium Level 135 137 135-145 MMOL/L Potassium Level 4.7 4.8 3.6-5.0 MMOL/L Chloride Level 100 101 98-107 MMOL/L Carbon Dioxide Level 20 L 21 21-32 MMOL/L Anion Gap 15 H 15 H 5-14 MMOL/L Blood Urea Nitrogen 93 H 92 H 7-18 MG/DL Creatinine 3.58 H 3.52 H 0.60-1.30 MG/DL Estimat Glomerular Filtration Rate 16 16 BUN/Creatinine Ratio 26 26 Glucose Level 139 H 137 H 70-105 MG/DL Calcium Level 9.2 8.7 8.5-10.1 MG/DL Corrected Calcium 9.1 8.5-10.1 MG/DL Magnesium Level 2.9 H 1.6-2.4 MG/DL Total Bilirubin 2.4 H 0.1-1.0 MG/DL Aspartate Amino Transf (AST/SGOT) 31 5-34 U/L Alanine Aminotransferase (ALT/SGPT) 26 0-55 U/L Alkaline Phosphatase 75 40-136 U/L C-Reactive Protein High Sensitivity 0.56 H 0.00-0.50 MG/DL B-Type Natriuretic Peptide 1442.9 H <100.0 PG/ML Total Protein 6.8 6.4-8.2 GM/DL Albumin 4.1 3.2-4.5 GM/DL Digoxin Level 0.59 L 0.80-2.00 NG/ML Influenza Type A (RT-PCR) Not Detected Not Detecte Influenza Type B (RT-PCR) Not Detected Not Detecte SARS-CoV-2 RNA (RT-PCR) Not Detected Not Detecte Urine Color YELLOW Urine Clarity CLEAR Urine pH 6.0 5-9 Urine Specific [place] 1.015 L 1.016-1.022 Urine Protein NEGATIVE NEGATIVE Urine Glucose (UA) NEGATIVE NEGATIVE Urine Ketones NEGATIVE NEGATIVE Urine Nitrite NEGATIVE NEGATIVE Urine Bilirubin NEGATIVE NEGATIVE Urine Urobilinogen 0.2 < = 1.0 MG/DL Urine Leukocyte Esterase NEGATIVE NEGATIVE Urine RBC (Auto) NEGATIVE NEGATIVE Urine RBC NONE /HPF Urine WBC NONE /HPF Urine Squamous Epithelial Cells NONE /HPF Urine Crystals NONE /LPF Urine Bacteria TRACE /HPF Urine Casts PRESENT /LPF Urine Hyaline Casts 0-2 H /LPF Urine Mucus NEGATIVE /LPF Urine Culture Indicated NO Physical Exam Physical Exam Vital Signs Vital Signs - First Documented 02/06/22 20:38 Temp 36.2 Pulse 90 Resp 16 B/P (MAP) 105/91 (96) Pulse Ox 100 O2 Delivery Room Air Capillary Refill : Less Than 3 Seconds Height, Weight, BMI Height: 6'0.00" Weight: 190lbs. 0.0oz. 86.485660gb; 25.67 BMI Method:Stated General Appearance: No Apparent Distress, WD/WN Eyes: Bilateral Eye Normal Inspection, Bilateral Eye PERRL, Bilateral Eye EOMI HEENT: PERRL/EOMI, Normal ENT Inspection, Other (Oropharynx somewhat dry) Neck: Normal Inspection; No JVD Respiratory: Lungs Clear, Normal Breath Sounds, No Accessory Muscle Use, No Respiratory Distress Cardiovascular: Regular Rate, Rhythm, No Edema, Systolic Murmur, Other (Paced rhythm on monitor) Gastrointestinal: Normal Bowel Sounds, Non Tender, Soft, Distended Back: Normal Inspection, No CVA Tenderness, No Vertebral Tenderness Extremity: Normal Inspection, No Pedal Edema Neurologic/Psychiatric: Alert, Oriented x3, No Motor/Sensory Deficits, Normal Mood/Affect Skin: Normal Color, Warm/Dry Lymphatic: No Adenopathy A/P-Cardiology Admission Diagnosis Ascites Hepatic cirrhosis Acute renal failure Coronary artery disease Assessment/Plan Ascites, hepatic cirrhosis. Worsening abdominal distention Given diuretics. Discussed in length with the patient and his , he will need referral for plasterer spot and may require paracentesis. Patient had hospitalization in 2019 for similar events. Reporting improvement. Congestive heart failure, acute on chronic left ventricular systolic and diastolic dysfunction. Echocardiogram was done on February 07, 2022 with ejection fraction 45 to 50%. Valvular heart disease with moderate to severe mitral and tricuspid regurgitation, pulmonary artery pressure 30 to 35 mmHg. Patient was referred for evaluation for possible mitral clip. He was initially referred to [place] or [place]. Coronary artery disease history of CABG x4 done in 2007 Cardiac catheterization done in April 2015 with patent vein graft to the diagonal artery filling the diagonal retrograde and filling the LAD, patent vein graft to the obtuse marginal branch, collaterals filling the dominant right coronary artery and occluded vein graft to the right coronary artery. Occluded [place] right coronary artery. Severe disease at the mid and distal LAD with a long segment has dual supply through the [place] artery and retrograde filling f rom the diagonal system. Conservative management was recommended Stress test done in 2019 showing fixed defect with no significant reversible ischemia Patient has been refusing to have any further testing. Conservative management is recommended Atrial fibrillation, tachybradycardia episode, history of permanent pacemaker. Currently maintained on Coumadin that is supratherapeutic, holding Coumadin and we are really adjust his medication accordingly Acute on chronic renal failure, chronic kidney disease stage IV, probably patient is intravascular volume depleted at this time Did not respond well to IV Lasix. He has significant abdominal distention due to abdominal ascites Recommend nephrology evaluation as an outpatient. Borderline hypotension secondary to intravascular volume depletion. Previously I decreased the Lasix and recommend maintaining Lasix 40 mg daily Hyperlipidemia, monitor lipids. Hold statin History of permanent pacemaker/ICD, continue to monitor as an outpatient History of carotid stenosis. History of cholecystectomy JEIMY WAGNER MD Feb 07, 2022 12:26
[2022-02-07 13:00] VITALS: BP 95/60
[2022-02-07] MEDS ORDERED: WARF-48 PO (13:10)
[2022-02-07] MEDS ORDERED: FURO40TA4 PO (13:10)
--- NOTE | 2022-02-07 13:13 | Discharge Inst-Simple/Standard ---
Discharge Inst-Standard Patient Instructions/Follow Up Plan of Care/Instructions/FU: Please continue to take your medications as written. Please follow up with your primary care doctor to follow up this hospital stay. Activity as Tolerated: Yes Discharge Diet: Low Residue, Coumadin Patient Diet Return to The Hospital For: Chest pain, shortness of breath, fever, weakness, if you feel you are getting worse. CHRISTA REAVES MD Feb 07, 2022 13:13
[2022-02-07] MEDS ORDERED: CATHETER FLUSH 10 ML SYR IV SCH (14:00)
[2022-02-07] MEDS ORDERED: INSULIN DEGLUDEC 10 UNIT SC SCH (14:00)
--- NOTE | 2022-02-07 14:02 | Physical Therapy Evaluation ---
PT Evaluation-General Medical Diagnosis Admission Date Feb 07, 2022 at 00:36 Medical Diagnosis: EDITH/supratherapeutic INR Onset Date: Feb 07, 2022 Therapy Diagnosis Therapy Diagnosis: debility/weakness Height/Weight Height (Feet): 6 Height (Inches): 0.00 Weight (Pounds): 190 Weight (Ounces): 0.0 Precautions Precautions/Isolations: Standard Precautions Referral Physician: Karen Reason for Referral: Evaluation/Treatment Medical History Pertinent Medical History: Atrial Fib, CABG, CAD, HTN, [place] Current History ER via family Reviewed History: Yes Social History Home: Single Level Current Living Status: Spouse Entry Into Home: Stairs With Railing PT Steps Into Home: 3 Prior Prior Level of Function SCALE: Activities may be completed with or without assistive devices. 9-Thixvbayws-mzginho completes the activity by him/herself with no assistance from a helper. 5-Set-up or Clean-up Assistance-helper sets up or cleans up; patient completes activity. [place] assists only prior to or following the activity. 4-Supervision or Touching Assistance-helper provides verbal cues and/or touching/steadying and/or contact guard assistance as patient completes activity. Assistance may be provided throughout the activity or intermittently. 3-Partial/Moderate Assistance-helper does LESS THAN HALF the effort. [place] lifts, holds or supports trunk or limbs, but provides less than half the effort. 2-Substantial/Maximal Assistance-helper does MORE THAN HALF the effort. [place] lifts or holds trunk or limbs and provides more than half the effort. 8-Urojfowfr-aqnxzg does ALL the effort. Patient does none of the effort to complete the activity. Or, the assistance of 2 or more helpers is required for the patient to complete the activity. If activity was not attempted, code reason: 7-Patient Refused. 9-Not Applicable-not attempted and the patient did not perform the activity before the current illness, exacerbation or injury. 10-Not Attempted due to Environmental Limitations-(lack of equipment, weather restraints, etc.). 88-Not Attempted due to Medical Conditions or Safety Concerns. Bed Mobility: 6 Transfers (B,C,W/C): 6 Gait: 6 Stairs: 6 Indoor Mobility (Ambulation): Independent Stairs: Independent Prior Devices Use: Walker, Other-see list below Prior Device Use: cane outside/FWW indoors PT Evaluation-Current Subjective Patient agrees to PT. Family present Pain Numeric Pain Scale: 8 Location: Medial, Upper, Lower Location Body Site: Back Pain Description: Pressure, Acute Objective Patient Orientation: Normal For Age ROM/Strength ROM Lower Extremities bilateral LE WFL Strength Lower Extremities 4-/5 grossly bilateral LE all planes Integumentary/Posture Bowel Incontinence: No Bladder Incontinence: No Posture trunk flexed posture with FWW use Neuromuscular (Tone, Coordination, Reflexes) grossly intact Sensory Vision: Functional Hearing: Functional Transfers Roll Left to Right (QC): 6 Sit to Lying (QC): 6 Lying to Sitting/Side of Bed(Q: 6 Sit to Stand (QC): 4 Gait Mode of Locomotion: Walk Anticipated Mode of Locomotion: Walk Walk 10 feet (QC): 4 Walk 50 ft with 2 Turns(QC): 4 Walk 150 ft (QC): 4 Distance: 300' Gait Assistive Device: FWW Comments/Gait Description extended UE's with FWW use and shuffle gait sequence Stairs 1 Step (curb) (QC): 7 4 Steps (QC): 7 Balance Sitting Static: Normal Sitting Dynamic: Normal Standing Static: Fair Standing Dynamic: Fair Assessment/Needs Patient appears very debilitated and demonstrates increase SOA with minimal activity. Patient fatigues with minimal activity as well. Patient has increase c/o upper, middle and lower back pain with activity. Per report, patient to dismiss to home with family on this date and has declined home health per . Rehab Potential: Guarded PT Plan Treatment/Plan Treatment Plan: Discontinue PT Treatment Plan: Education, Functional Activity Stew, Functional Strength, Gait, Safety Treatment Duration: Feb 07, 2022 Frequency: 1 time per week Estimated Hrs Per Day: .25 hour per day Patient and/or Family Agrees t: Yes Safety Risks/Education Patient Education: Gait Training, Steps (patient refused to perform) Time Time In: 1320 Time Out: 1330 DATE: Feb 07, 2022 Total Billed Treatment Time: 10 Total Billed Treatment 1 visit EVMod 10 min LLOYD YUAN PT Feb 07, 2022 14:02
[2022-02-07 15:15] VITALS: BP 95/60
[2022-02-07] MEDS ORDERED: OMEGA 3 (FISH OIL) 1000 MG CAP PO SCH (21:00)
[2022-02-07] MEDS ORDERED: AtorvaSTATin TABLET 10 MG TABLET PO SCH (21:00)
[2022-02-07] MEDS ORDERED: NON-FORMULARY MEDICATION 1 EA EA (Simvastatin 10 MG) PO SCH (21:00)
[2022-02-07] MEDS ORDERED: FEXOFENADINE HCL PO SCH (21:00)
[2022-02-08] MEDS ORDERED: DIGOXIN 0.125 MG (LANOXIN) TAB PO SCH (09:00)
[2022-02-08] MEDS ORDERED: LORATADINE (CLARITIN) 10 MG TAB PO SCH (09:00)
[2022-02-08] MEDS ORDERED: OMEGA 3 (FISH OIL) 1000 MG CAP PO SCH (09:00)
[2022-02-08] MEDS ORDERED: PANTOPRAZOLE 40 MG (PROTONIX) TAB PO SCH (09:00)
== END 2022-02-07 13:33 | disposition home or self-care (01) ==
LOC: EDUNIT# 20:22 → ER 20:24 → UNDOADMOB 02-07 00:36 → 4TH 02-07 00:36 → UNDODISOB 02-07 13:33
PROVIDERS: ADMIT Internal Medicine; ATTEND Internal Medicine
DX: K74.60 Unspecified cirrhosis of liver (principal); N17.9 Acute kidney failure, unspecified; N18.9 Chronic kidney disease, unspecified; I48.20 Chronic atrial fibrillation, unspecified; D64.9 Anemia, unspecified; I50.43 Acute on chronic combined systolic (congestive) and diastolic (congestive) heart failure; E78.5 Hyperlipidemia, unspecified; I25.10 Atherosclerotic heart disease of native coronary artery without angina pectoris; I65.29 Occlusion and stenosis of unspecified carotid artery; Z90.49 Acquired absence of other specified parts of digestive tract; Z95.5 Presence of coronary angioplasty implant and graft; Z87.891 Personal history of nicotine dependence
CPT/HCPCS: 71045; 74176; 80048; 80053; 80162; 81000; 83735; 83880; 85007; 85025; 85027; 85610 ×2; 86141; 87636; 97162; 99283; C8929; 36415; 93306; 96361; 96375; G0378

== ENCOUNTER 2022-02-10 08:29 | Inpatient (IN) | payer MEDICARE, OTHER ==
[2022-02-10] VITALS (8 sets, daily range): BP systolic 81–102; BP diastolic 41–88
[~2022-02-10] VITALS: Ht 182 cm; Wt 84.3 kg
[~2022-02-10 08:29] MED LIST changes: +ALLO300T2 PO; +CARV3.122 PO; +DIGO125T3 PO; +INSU100I32 SC; +NF-ALLE180 PO; +OMEG100032 PO; +PANT40TA52 PO; +POTA-177 PO; +SIMV10TA26 PO; +SPIR25TA5 PO
[2022-02-10] MEDS ORDERED: HYDROcodone/APAP 5 MG/325 MG (LORTAB) TAB PO ONE (09:00)
--- NOTE | 2022-02-10 09:10 | ED General ---
General Chief Complaint: General Problems/Pain Stated Complaint: HEART DISEASE | PAIN | SOB Nursing Triage Note: PT TO [facility] 3 PT CO OF SOA, SWOLLEN ABD, PAIN IN R SIDE OF NECK AND R HIP. PT VERY UNCOMFORTABLE UNABLE TO LIE STILL. WAS RELEASED FROM HOSP ON THURSDAY OF LAST WEEK Source of Information: Patient, Family, Old Records Exam Limitations: No Limitations History of Present Illness Date Seen by Provider: Feb 10, 2022 Time Seen by Provider: 08:34 Initial Comments 81-year-old male with past medical history of CAD, CHF, liver disease coming in with his due to concerns for multiple issues. Short of breath for several weeks, abdomen becoming more swollen over the past couple weeks, pain in the right side of his neck going down to his right side in general. Released from the hospital Thursday for all of these similar symptoms, but continue to worsen. Otherwise denying any fever, vomiting, weakness, numbness, or any other concerns Allergies and Home Medications Allergies Coded Allergies: Penicillins (Verified Allergy, Unknown, 04/26/08) Patient Home Medication List Home Medication List Reviewed: Yes Allopurinol (Allopurinol) 300 Mg Tablet, 300 MG PO DAILY, (Reported) Entered as Reported by: MOE PICKETT on 02/07/22 1155 Aspirin (Aspirin EC) 81 Mg Tablet.dr, 81 MG PO HS, (Reported) Entered as Reported by: BHARAT NAYAK on 07/17/15 1348 Carvedilol (Carvedilol) 3.125 Mg Tablet, 3.125 MG PO BID, (Reported) Entered as Reported by: MOE PICKETT on 02/07/22 1155 Digoxin (Digoxin) 125 Mcg (0.125 Mg) Tablet, 62.5 MCG PO DAILY, (Reported) Entered as Reported by: MOE PICKETT on 02/07/22 1155 Fexofenadine HCl (Fexofenadine HCl) 180 Mg Tablet, 90 MG PO BID, (Reported) Entered as Reported by: MOE PICKETT on 02/07/22 1155 Furosemide (Furosemide) 40 Mg Tablet, 40 MG PO DAILY Prescribed by: CHRISTA REAVES on 02/07/22 1310 Insulin Degludec (Tresiba Flextouch U-100) 100 Unit/Ml (3 Ml) Insuln.pen, 10 UN ITS SC 1400, (Reported) Entered as Reported by: MOE PICKETT on 02/07/22 1219 Metolazone (Metolazone) 2.5 Mg Tablet, 2.5 MG PO ,, (Reported) Entered as Reported by: CAMI PRECIADO on 02/19/16 1225 [place]-3/Dha/Epa/Fish Oil (Fish Oil 1,000 mg Softgel) 1,000 Mg (120 Mg-180 Mg) Capsule, 2,000 MG PO DAILY, (Reported) Entered as Reported by: MOE PICKETT on 02/07/22 1155 [place]-3/Dha/Epa/Fish Oil (Fish Oil 1,000 mg Softgel) 1,000 Mg (120 Mg-180 Mg) Capsule, 1,000 MG PO HS, (Reported) Entered as Reported by: MOE PICKETT on 02/07/22 1155 Pantoprazole Sodium (Pantoprazole Sodium) 40 Mg Tablet.dr, 40 MG PO DAILY, (Reported) Entered as Reported by: MOE PICKETT on 02/07/22 1155 Potassium Chloride (Potassium Chloride) 10 Meq Tab.er.prt, 10 MEQ PO DAILY, (Reported) Entered as Reported by: MOE PICKETT on 02/07/22 1155 Sacubitril/Valsartan (Entresto 24 mg-26 mg Tablet) 24 Mg-26 Mg Tablet, 1 TAB PO BID Prescribed by: CHRISTA REAVES on 02/07/22 1310 Simvastatin (Simvastatin) 10 Mg Tablet, 10 MG PO HS, (Reported) Entered as Reported by: MOE PICKETT on 02/07/22 115 Spironolactone (Spironolactone) 25 Mg Tablet, 25 MG PO DAILY, (Reported) Entered as Reported by: MOE PICKETT on 02/07/22 1155 Warfarin Sodium (Warfarin Sodium) 5 Mg Tablet, 5 MG PO Q48H @HS Prescribed by: CHRISTA REAVES on 02/07/22 1310 Warfarin Sodium (Warfarin Sodium) 5 Mg Tablet, 7.5 MG PO Q48H @HS Prescribed by: CHRISTA REAVES on 02/07/22 1310 Discontinued Medications Carvedilol (Carvedilol) 6.25 Mg Tablet, 6.25 MG PO BID, (Reported) Discontinued Reason: No Longer Taking Entered as Reported by: BHARAT NAYAK on 07/17/15 1241 Digoxin (Digox) 125 Mcg Tablet, 125 MCG PO DAILY, (Reported) Discontinued Reason: No Longer Taking Entered as Reported by: BHARAT NAYAK on 07/17/15 1241 Docusate Sodium (Docusate Sodium) 100 Mg Capsule, 200 MG PO HS, (Reported) Discontinued Reason: No Longer Taking Entered as Reported by: CAMI PRECIADO on 02/19/16 1225 Famotidine (Famotidine) 20 Mg Tablet, 20 MG PO BID, (Reported) Discontinued Reason: No Longer Taking Entered as Reported by: BHARAT NAYAK on 05/07/15 1112 Fexofenadine HCl (Heather Allergy) 60 Mg Tablet, 60 MG PO BID, (Reported) Discontinued Reason: Prescription changed Entered as Reported by: HAYLEY HERRMANN on 05/04/15 1121 Hydrocodone Bit/Acetaminophen (Lortab 5 Mg Tablet) 1 Each Tablet, 0.5-1 TAB PO Q6H PRN for PAIN Discontinued Reason: No Longer Taking Prescribed by: HERO WORKMAN on 01/04/16 1239 Isosorbide Mononitrate (Isosorbide Mononitrate ER) 30 Mg Tab.er.24h, 30 MG PO DAILY, (Reported) Discontinued Reason: No Longer Taking Entered as Reported by: BHARAT NAYAK on 05/07/15 1112 [place]-3/Dha/Epa/Fish Oil (Fish Oil 1,000 Mg Softgel) 1,000 Mg Capsule, 1,000 MG PO HS, (Reported) Discontinued Reason: No Longer Taking Entered as Reported by: THERON RODRIGUEZ on 02/13/10 1006 Potassium Chloride (Potassium Chloride) 10 Meq Tablet.er, 10 MEQ PO DAILY, (Reported) Discontinued Reason: No Longer Taking Entered as Reported by: BHARAT NAYAK on 05/07/15 1112 Sacubitril/Valsartan (Entresto 24 mg-26 mg Tablet) 1 Each Tablet, 1 EACH PO BID Discontinued Reason: No Longer Taking Prescribed by: JEIMY SABA on 01/06/16 0909 Review of Systems Review of Systems Constitutional: No fever EENTM: no symptoms reported Respiratory: see HPI Cardiovascular: see HPI Gastrointestinal: see HPI Genitourinary: no symptoms reported Musculoskeletal: no symptoms reported Skin: no symptoms reported Psychiatric/Neurological: No Symptoms Reported Hematologic/Lymphatic: No Symptoms Reported Immunological/Allergic: no symptoms reported All Other Systems Reviewed Negative Unless Noted: Yes Past Loxsmpg-Fgnbum-Axaprg Hx Patient Social History Tobacco Use?: No Smoking Status: Former Smoker Substance use?: No Alcohol Use?: Yes Alcohol type: Beer Alcohol Frequency: Once in a while Pt feels they are or have been: No Immunizations Up To Date Tetanus Booster (TDap): Unknown PED Vaccines UTD: No Influenza Vaccine Up-to-Date: No; Not Current First/Initial COVID19 Vaccinat: YES Second COVID19 Vaccination Nader: YES COVID19 Vaccine [employer]frame [employer] 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: [employer] Seasonal Allergies Seasonal Allergies: Yes Past Medical History Surgery/Hospitalization HX: HEART FAILURE, KIDNEY DISEASE, LIVER DISEASE, PACEMAKER/DEFIB, GB AND BACK SURG Surgeries: Yes Cardiac, CABG, Defibrillator, Eye Surgery, Gallbladder, Orthopedic, Pacemaker Respiratory: Yes Sleep Apnea Currently Using CPAP: Yes (SENT IT BACK, BECAUSE PATIENT COULD NOT TOLERATE ) Currently Using BIPAP: No Cardiac: Yes (Congestive heart failure) Atrial Fibrillation, Chronic Edema/Swelling, Coronary Artery Disease, Heart Attack, High Cholesterol, Hypertension TIA Reproductive Disorders: No Sexually Transmitted Disease: No HIV/AIDS: No Genitourinary: Yes Benign Prostatic Hyperpl Gastrointestinal: Yes Liver Disease/Jaundice, Chronic Constipation, Pancreatitis, Gall Bladder Disease Musculoskeletal: Yes Arthritis, Chronic Back Pain Loss of Vision: Denies Hearing Impairment: Hard of Hearing Psychosocial: No Depression Recent Skin Changes Adverse Reaction/Blood Tranf: No Family Medical History Patient reports no known family medical history. No Pertinent Family Hx Physical Exam Vital Signs Vital Signs - First Documented 02/10/22 08:30 Temp 36.0 Pulse 68 Resp 30 B/P (MAP) 107/51 (69) Pulse Ox 98 Capillary Refill : Less Than 3 Seconds Height, Weight, BMI Height: 6'0.00" Weight: 190lbs. 0.0oz. 86.195507xm; 25.00 BMI Method:Stated General Appearance: No Apparent Distress, WD/WN Eyes: Bilateral Eye Other (Very mild scleral icterus) HEENT: PERRL/EOMI, Normal ENT Inspection, Pharynx Normal Neck: Full Range of Motion, Normal Inspection, Non Tender, Supple Respiratory: Chest Non Tender, Lungs Clear, Normal Breath Sounds, No Accessory Muscle Use, No Respiratory Distress Cardiovascular: Regular Rate, Rhythm, No Edema, Normal Peripheral Pulses Gastrointestinal: Normal Bowel Sounds, Non Tender, Other (Distention with fluid wave, no tenderness or rebound) Back: Normal Inspection, No CVA Tenderness, No Vertebral Tenderness Extremity: Normal Capillary Refill, Normal Inspection, Normal Range of Motion, Non Tender, No Calf Tenderness Neurologic/Psychiatric: Alert, Oriented x3, No Motor/Sensory Deficits, Normal Mood/Affect Skin: Warm/Dry Lymphatic: No Adenopathy Progress/Results/Core Measures Suspected Sepsis SIRS Temperature: Pulse: 68 Respiratory Rate: 30 Laboratory Tests 02/10/22 09:00: White Blood Count 9.0 Blood Pressure 107 /51 Mean: 69 Laboratory Tests 02/10/22 09:00: Creatinine 4.27#H, INR Comment 4.8H, Platelet Count 100L, Total Bilirubin 2.3H Results/Orders Lab Results Laboratory Tests Test 02/10/22 09:00 Range/Units White Blood Count 9.0 4.3-11.0 10^3/uL Red Blood Count 3.12 L 4.30-5.52 10^6/uL Hemoglobin 8.4 L 13.3-17.7 g/dL Hematocrit 27 L 40-54 % Mean Corpuscular Volume 86 80-99 fL Mean Corpuscular Hemoglobin 27 25-34 pg Mean Corpuscular Hemoglobin Concent 31 L 32-36 g/dL Red Cell Distribution Width 18.6 H 10.0-14.5 % Platelet Count 100 L 130-400 10^3/uL Mean Platelet Volume 12.9 H 9.0-12.2 fL Immature Granulocyte % (Auto) 0 % Neutrophils (%) (Auto) 80 H 42-75 % Lymphocytes (%) (Auto) 5 L 12-44 % Monocytes (%) (Auto) 9 0-12 % Eosinophils (%) (Auto) 4 0-10 % Basophils (%) (Auto) 1 0-10 % Neutrophils # (Auto) 7.2 1.8-7.8 10^3/uL Lymphocytes # (Auto) 0.5 L 1.0-4.0 10^3/uL Monocytes # (Auto) 0.8 0.0-1.0 10^3/uL Eosinophils # (Auto) 0.4 H 0.0-0.3 10^3/uL Basophils # (Auto) 0.1 0.0-0.1 10^3/uL Immature Granulocyte # (Auto) 0.0 0.0-0.1 10^3/uL Neutrophils % (Manual) 85 % Lymphocytes % (Manual) 7 % Monocytes % (Manual) 5 % Eosinophils % (Manual) 3 % Basophils % (Manual) 0 % Nucleated Red Blood Cells 1 Hypochromasia SLIGHT Poikilocytosis SLIGHT Anisocytosis SLIGHT Target Cells SLIGHT Tear Drop Cells SLIGHT Elliptocytes SLIGHT Prothrombin Time 44.8 H 12.2-14.7 SEC INR Comment 4.8 H 0.8-1.4 Activated Partial Thromboplast Time 50 H 24-35 SEC Sodium Level 134 L 135-145 MMOL/L Potassium Level 5.2 H 3.6-5.0 MMOL/L Chloride Level 100 98-107 MMOL/L Carbon Dioxide Level 20 L 21-32 MMOL/L Anion Gap 14 5-14 MMOL/L Blood Urea Nitrogen 115 *H 7-18 MG/DL Creatinine 4.27 #H 0.60-1.30 MG/DL Estimat Glomerular Filtration Rate 13 BUN/Creatinine Ratio 27 Glucose Level 88 70-105 MG/DL Calcium Level 8.9 8.5-10.1 MG/DL Corrected Calcium 9.1 8.5-10.1 MG/DL Magnesium Level 2.8 H 1.6-2.4 MG/DL Total Bilirubin 2.3 H 0.1-1.0 MG/DL Aspartate Amino Transf (AST/SGOT) 60 H 5-34 U/L Alanine Aminotransferase (ALT/SGPT) 58 H 0-55 U/L Alkaline Phosphatase 72 40-136 U/L Troponin I 0.212 H <0.028 NG/ML B-Type Natriuretic Peptide 1865.7 H <100.0 PG/ML Total Protein 6.1 L 6.4-8.2 GM/DL Albumin 3.7 3.2-4.5 GM/DL Lipase 35 8-78 U/L My Orders Orders - FANTA BUCK MD Ed Iv/Invasive Line Start (02/10/22 08:55) Ekg Tracing (02/10/22 08:55) Monitor-Rhythm Ecg Trace Only (02/10/22 08:55) Chest 1 View, Ap/Pa Only (02/10/22 08:55) Bnp Lee (02/10/22 08:55) Cbc With Automated Diff (12/5/22 08:55) Comprehensive Metabolic Panel (02/10/22 08:55) Lipase (02/10/22 08:55) Magnesium (02/10/22 08:55) Protime With Inr (02/10/22 08:55) Partial Thromboplastin Time (02/10/22 08:55) Troponin I Lee (02/10/22 08:55) Ua Culture If Indicated (02/10/22 08:55) Hydrocodone/Apap 5/325 Tablet (Lortab 5 (02/10/22 09:00) Manual Differential (02/10/22 09:00) Medications Given in ED Current Medications Medications Dose Ordered Sig/Divina Route Start Time Stop Time Status Last Admin Dose Admin Acetaminophen/ Hydrocodone Bitart 1 ea ONCE ONCE PO 02/10/22 09:00 02/10/22 09:01 DC 02/10/22 09:06 1 EA Vital Signs/I&O 02/10/22 08:30 Temp 36.0 Pulse 68 Resp 30 B/P (MAP) 107/51 (69) Pulse Ox 98 Capillary Refill : Less Than 3 Seconds Blood Pressure Mean: 69 Progress Note : Progress Note 81-year-old male with above history coming in due to multiple symptoms, is notably right-sided pain and abdominal distention. An IV was placed and basic labs were obtained including cardiac biomarkers. His total bilirubin is elevated, similar to prior, creatinine slightly worse with GFR going from 16-13, troponin elevated at 0.2 concerning for NSTEMI. EKG with no acute ischemic changes. The patient is on warfarin and his INR is just under 5 despite holding it. I discussed with the patient that his kidneys are not doing well, liver is not doing well, and now he is having worsening heart problems. I recommended admission to a hospital with a GI specialist as well as manager assurance. The patient states he would be transferred to [place], but would refuse to go to any hospital further such as [place]. Unfortunately after contacting [facility], both of them are full and did not have capacity to accept the patient. I discussed the case with Dr. Samuels, who would be willing to admit the patient if he would never want dialysis. I discussed what dialysis is and what that would mean for him. The patient states if his kidney function worsened to a point where he would need dialysis, at that point he would be okay to not go forward with it, knowing that this would mean he would . Discussed hospice with the patient as well, and he is interested, but believes he needs to think about it further before he can make that decision. I then contacted Dr. Saba and Dr. Domínguez for consultation. ECG Initial ECG Impression Date: Feb 10, 2022 Initial ECG Impression Time: 09:06 Initial ECG Rate: 61 Initial ECG Rhythm: Normal Sinus Comment Ventricularly paced, no STEMI Diagnostic Imaging Diagonstic Imaging: Xray Plain Films/CT/US/NM/MRI: chest Comments [facility]. [place], [place] NAME: LADONNA ZEE [facility] REC#: [id number] PT STATUS: REG ER : 1940 PHYSICIAN: FANTA BUCK MD ADMIT DATE: 02/10/22/ER Draft Date of Exam:02/10/22 CHEST 1 VIEW, AP/PA ONLY CLINICAL INDICATION: Patient with chest pain. EXAM: Portable chest x-ray, upright view. COMPARISON: Chest x-ray dated 02/06/2022. FINDINGS: There is cardiomegaly with minimal pulmonary vascular congestion. There is interval development of groundglass consolidation involving the left lung base. There is mild right basilar atelectasis. There is blunting of the left costophrenic angle and a left pleural effusion may be considered. There is no pneumothorax. Postop changes of the chest are seen, consistent with CABG. Cardiac pacemaker/AICD is in stable position. Interval development of fracture with callus formation involving the lateral aspect of the left T7 and T8 level. IMPRESSION: 1: There is interval development of groundglass consolidation involving the left lung base (which may represent atelectasis versus infiltrate) and left pleural effusion. 2: There is mild right basilar atelectasis. 3: There is cardiomegaly with minimal pulmonary vascular congestion. Dictated on workstation # [id number] Dict: 02/10/22923 Trans: 02/10/22931 [id number] Interpreted by: SUNDAY ALONZO MD Electronically signed by: Departure Impression Primary Impression: Acute kidney injury superimposed on CKD Additional Impressions: NSTEMI (non-ST elevated myocardial infarction) Decompensated liver disease Disposition: ADMITTED INPATIENT Condition: Stable Admissions Decision to Admit Reason: Admit from ER (General) Decision to Admit/Date: Feb 10, 2022 Time/Decision to Admit Time: 10:00 Departure-Patient Inst. Referrals: JOCELYN JORDAN MD (PCP/Family) Primary Care Physician FANTA BUCK MD Feb 10, 2022 09:10
[2022-02-10 09:11] LABS: BASOPHILS # (AUTO) 0.1 10^3/uL (0.0-0.1); BASOPHILS % (AUTO) 1 % (0-10); EOSINOPHILS # (AUTO) 0.4 10^3/uL (0.0-0.3); EOSINOPHILS % (AUTO) 4 % (0-10); HEMATOCRIT 27 % (40-54); HEMOGLOBIN 8.4 g/dL (13.3-17.7); LYMPHOCYTES # (AUTO) 0.5 10^3/uL (1.0-4.0); LYMPHOCYTES % (AUTO) 5 % (12-44); MEAN CORPUSCULAR HEMOGLOBIN 27 pg (25-34); MEAN CORPUSCULAR HGB CONC 31 g/dL (32-36); MEAN CORPUSCULAR VOLUME 86 fL (80-99); MEAN PLATELET VOLUME 12.9 fL (9.0-12.2); MONOCYTES # (AUTO) 0.8 10^3/uL (0.0-1.0); MONOCYTES % (AUTO) 9 % (0-12); NEUTROPHILS # (AUTO) 7.2 10^3/uL (1.8-7.8); NEUTROPHILS % (AUTO) 80 % (42-75); PLATELET COUNT 100 10^3/uL (130-400)
[2022-02-10 09:18] LABS: INR 4.8 (0.8-1.4); PROTHROMBIN TIME PATIENT 44.8 SEC (12.2-14.7)
[2022-02-10 09:26] LABS: ALBUMIN 3.7 GM/DL (3.2-4.5); BILIRUBIN,TOTAL 2.3 MG/DL (0.1-1.0); CALCIUM 8.9 MG/DL (8.5-10.1); CREATININE SERUM 4.27 MG/DL (0.60-1.30); MAGNESIUM 2.8 MG/DL (1.6-2.4); POTASSIUM 5.2 MMOL/L (3.6-5.0); TOTAL PROTEIN 6.1 GM/DL (6.4-8.2)
--- NOTE | 2022-02-10 09:32 | Diagnostic Imaging Report ---
CLINICAL INDICATION: Patient with chest pain. EXAM: Portable chest x-ray, upright view. COMPARISON: Chest x-ray dated 02/06/2022. FINDINGS: There is cardiomegaly with minimal pulmonary vascular congestion. There is interval development of groundglass consolidation involving the left lung base. There is mild right basilar atelectasis. There is blunting of the left costophrenic angle and a left pleural effusion may be considered. There is no pneumothorax. Postop changes of the chest are seen, consistent with CABG. Cardiac pacemaker/AICD is in stable position. Interval development of fracture with callus formation involving the lateral aspect of the left T7 and T8 level. IMPRESSION: 1: There is interval development of groundglass consolidation involving the left lung base (which may represent atelectasis versus infiltrate) and left pleural effusion. 2: There is mild right basilar atelectasis. 3: There is cardiomegaly with minimal pulmonary vascular congestion. Dictated by: Dictated on workstation # [id number]
[2022-02-10 10:20] LABS: ANISOCYTOSIS SLIGHT; BASOPHILS % (MANUAL) 0 %; ELLIPT/OVALOCYTES SLIGHT; EOSINOPHILS % (MANUAL) 3 %; HYPOCHROMASIA SLIGHT; LYMPHOCYTES % (MANUAL) 7 %; MONOCYTES % (MANUAL) 5 %; NEUTROPHILS % (MANUAL) 85 %; NUCLEATED RED BLOOD CELLS 1; POIKILOCYTOSIS SLIGHT; TARGET CELLS SLIGHT; TEAR DROP CELLS SLIGHT
[2022-02-10] MEDS ORDERED: HYDROcodone/APAP 5 MG/325 MG (LORTAB) TAB PO PRN (12:15)
--- NOTE | 2022-02-10 12:15 | Consultation - Surgery ---
RICHIE CHAPMAN 02/10/22 1215: History of Present Illness History of Present Illness Patient Consulted On(elisa/time) 02/10/22 12:10 Date Seen by Provider: Feb 10, 2022 Time Seen by Provider: 11:30 History of Present Illness Ladonna Boone is an 81 yo M with a history of decompensated liver disease, CKD, CAD, chronic Afib, CHF, who presents for evaluation and management of ascites and subsequent chest, abdomen discomfort. Patient states that over the course of the past week, he noticed steadily increasing abdominal girth and SOB, for which he sought treatment last thursday (Feb 07 2022). He returns this AM for continually worsening symptoms. Patient is accompanied by . Allergies and Home Medications Allergies Coded Allergies: Penicillins (Verified Allergy, Unknown, 04/26/08) Patient Home Medication List Home Medication List Reviewed: Yes Acetaminophen (Tylenol Extra Strength) 500 Mg Tablet, 500 MG PO TID PRN for PAIN-MILD (1-4), (Reported) Entered as Reported by: BERNY DALTON on 02/10/22 1410 Last Action: Reviewed Allopurinol (Allopurinol) 300 Mg Tablet, 300 MG PO DAILY, (Reported) Entered as Reported by: MOE PICKETT on 02/07/22 1155 Last Action: Reviewed Aspirin (Aspirin EC) 81 Mg Tablet.dr, 81 MG PO HS, (Reported) Entered as Reported by: BHARAT NAYAK on 07/17/15 1348 Last Action: Reviewed Carvedilol (Carvedilol) 3.125 Mg Tablet, 3.125 MG PO BID, (Reported) Entered as Reported by: MOE PICKETT on 02/07/22 1155 Last Action: Reviewed Fexofenadine HCl (Heather Allergy) 180 Mg Tablet, 90 MG PO BID, (Reported) Entered as Reported by: BERNY DALTON on 02/10/22 1410 Last Action: Reviewed Insulin Degludec (Tresiba Flextouch U-100) 100 Unit/Ml (3 Ml) Insuln.pen, 10 UNITS SC 1400, (Reported) Entered as Reported by: MOE PICKETT on 02/07/22 1219 Last Action: Reviewed Nitroglycerin (Nitroglycerin) 0.4 Mg Tab.subl, 0.4 MG SL UD PRN for CHEST PAIN (ANGINA), (Reported) Entered as Reported by: BERNY DALTON on 02/10/22 1409 Last Action: Reviewed Pantoprazole Sodium (Pantoprazole Sodium) 40 Mg Tablet.dr, 40 MG PO DAILY, (Reported) Entered as Reported by: MOE PICKETT on 02/07/22 1155 Last Action: Reviewed Warfarin Sodium (Warfarin Sodium) 5 Mg Tablet, 5 MG PO Q48H, (Reported) Entered as Reported by: BERNY DALTON on 02/10/22 1412 Last Action: Held Warfarin Sodium (Warfarin Sodium) 5 Mg Tablet, 7.5 MG PO Q48H, (Reported) Entered as Reported by: BERNY DALTON on 02/10/22 1413 Last Action: Held Discontinued Medications Carvedilol (Carvedilol) 6.25 Mg Tablet, 6.25 MG PO BID, (Reported) Discontinued Reason: No Longer Taking Entered as Reported by: BHARAT NAYAK on 07/17/15 1241 Digoxin (Digox) 125 Mcg Tablet, 125 MCG PO DAILY, (Reported) Discontinued Reason: No Longer Taking Entered as Reported by: BHARAT NAYAK on 07/17/15 1241 Digoxin (Digoxin) 125 Mcg (0.125 Mg) Tablet, 62.5 MCG PO DAILY, (Reported) Entered as Reported by: MOE PICKETT on 02/07/22 1155 Last Action: Discontinued Docusate Sodium (Docusate Sodium) 100 Mg Capsule, 200 MG PO HS, (Reported) Discontinued Reason: No Longer Taking Entered as Reported by: CAMI PRECIADO on 02/19/16 1225 Famotidine (Famotidine) 20 Mg Tablet, 20 MG PO BID, (Reported) Discontinued Reason: No Longer Taking Entered as Reported by: BHARAT NAYAK on 05/07/15 1112 Fexofenadine HCl (Heather Allergy) 60 Mg Tablet, 60 MG PO BID, (Reported) Discontinued Reason: Prescription changed Entered as Reported by: HAYLEY HERRMANN on 05/04/15 1121 Furosemide (Furosemide) 40 Mg Tablet, 40 MG PO BID, (Reported) Discontinued Reason: Prescription changed Entered as Reported by: BHARAT NAYAK on 10/04/15 0939 Furosemide (Furosemide) 40 Mg Tablet, 40 MG PO BID, (Reported) Entered as Reported by: BERNY DALTON on 02/10/22 1408 Last Action: Discontinued Hydrocodone Bit/Acetaminophen (Lortab 5 Mg Tablet) 1 Each Tablet, 0.5-1 TAB PO Q6H PRN for PAIN Discontinued Reason: No Longer Taking Prescribed by: HERO WORKMAN on 01/04/16 1239 Isosorbide Mononitrate (Isosorbide Mononitrate ER) 30 Mg Tab.er.24h, 30 MG PO DAILY, (Reported) Discontinued Reason: No Longer Taking Entered as Reported by: BHARAT NAYAK on 05/07/15 1112 Metolazone (Metolazone) 2.5 Mg Tablet, 2.5 MG PO ,, (Reported) Entered as Reported by: CAMI PRECIADO on 02/19/16 1225 Last Action: Discontinued [place]-3/Dha/Epa/Fish Oil (Fish Oil 1,000 Mg Softgel) 1,000 Mg Capsule, 1,000 MG PO HS, (Reported) Discontinued Reason: No Longer Taking Entered as Reported by: THERON RODRIGUEZ on 02/13/10 1006 [place]-3/Dha/Epa/Fish Oil (Fish Oil 1,000 mg Softgel) 1,000 Mg (120 Mg-180 Mg) Capsule, 2,000 MG PO DAILY, (Reported) Entered as Reported by: MOE PICKETT on 02/07/22 1155 Last Action: Discontinued [place]-3/Dha/Epa/Fish Oil (Fish Oil 1,000 mg Softgel) 1,000 Mg (120 Mg-180 Mg) Capsule, 1,000 MG PO HS, (Reported) Entered as Reported by: MOE PICKETT on 02/07/22 1155 Last Action: Discontinued Potassium Chloride (Potassium Chloride) 10 Meq Tablet.er, 10 MEQ PO DAILY, (Reported) Discontinued Reason: No Longer Taking Entered as Reported by: BHARAT NAYAK on 05/07/15 1112 Potassium Chloride (Potassium Chloride) 10 Meq Tab.er.prt, 10 MEQ PO DAILY, (Reported) Entered as Reported by: MOE PICKETT on 02/07/22 115 Last Action: Discontinued Sacubitril/Valsartan (Entresto 24 mg-26 mg Tablet) 1 Each Tablet, 1 EACH PO BID Discontinued Reason: No Longer Taking Prescribed by: JEIMY SABA on 01/06/16 0909 Sacubitril/Valsartan (Entresto 24 mg-26 mg Tablet) 24 Mg-26 Mg Tablet, 1 TAB PO BID, (Reported) Discontinued Reason: Prescription changed Entered as Reported by: MOE PICKETT on 02/07/22 115 Sacubitril/Valsartan (Entresto 24 mg-26 mg Tablet) 24 Mg-26 Mg Tablet, 1 TAB PO BID, (Reported) Entered as Reported by: BERNY DALTON on 02/10/22 1407 Last Action: Discontinued Simvastatin (Simvastatin) 10 Mg Tablet, 10 MG PO HS, (Reported) Entered as Reported by: MOE PICKETT on 02/07/22 115 Last Action: Discontinued Spironolactone (Spironolactone) 25 Mg Tablet, 25 MG PO HS, (Reported) Entered as Reported by: MOE PICKETT on 02/07/221154 Last Action: Discontinued Warfarin Sodium (Warfarin Sodium) 5 Mg Tablet, 5 MG PO Q48H @HS, (Reported) Discontinued Reason: Prescription changed Entered as Reported by: CAMI PRECIADO on 02/19/16 1225 Warfarin Sodium (Warfarin Sodium) 5 Mg Tablet, 7.5 MG PO Q48H @HS, (Reported) Discontinued Reason: Prescription changed Entered as Reported by: CAMI PRECIADO on 02/19/16 1225 Past Klgumyb-Fcpgmb-Hfrcjq Hx Patient Social History Smoking Status: Former Smoker Former Smoker, Quit: Aug 14, 1975 Type Used: Cigarettes, Smokeless Tobacco Recent Hopitalizations: Yes Alcohol Use?: No Substance type: Caffeine Have you traveled recently?: No Immunizations Up To Date Tetanus Booster (TDap): Unknown PED Vaccines UTD: No Seasonal Allergies Seasonal Allergies: Yes Surgeries History of Surgeries: Yes Surgeries: Cardiac, CABG, Defibrillator, Eye Surgery, Gallbladder, Orthopedic, Pacemaker Respiratory History of Respiratory Disorde: Yes Respiratory Disorders: Sleep Apnea Cardiovascular History of Cardiac Disorders: Yes (Congestive heart failure) Cardiac Disorders: Atrial Fibrillation, Chronic Edema/Swelling, Coronary Artery Disease, Heart Attack, High Cholesterol, Hypertension Neurological Neurological Disorders: TIA Reproductive System Hx Reproductive Disorders: No Sexually Transmitted Disease: No HIV/AIDS: No Genitourinary History of Genitourinary Disor: Yes Genitourinary Disorders: Benign Prostatic Hyperpl Gastrointestinal History of Gastrointestinal Di: Yes Gastrointestinal Disorders: Liver Disease/Jaundice, Chronic Constipation, Pancreatitis, Gall Bladder Disease Musculoskeletal History of Musculoskeletal Dis: Yes Musculoskeletal Disorders: Arthritis, Chronic Back Pain HEENT Loss of Vision: Denies Hearing Impairment: Hard of Hearing Psychosocial History of Psychiatric Problem: No Behavioral Health Disorders: Depression Integumentary Skin/Integumentary Disorders: Recent Skin Changes Blood Transfusions Adverse Reaction to a Blood Tr: No Family Medical History Significant Family History: No Pertinent Family Hx Family Medial History: Patient reports no known family medical history. Review of Systems-General Constitutional: No chills, No fever EENTM: No blurred vision, No eye pain Respiratory: No cough; short of breath (Secondary to ascites) Cardiovascular: vascular heart diseas Genitourinary: No decreased output Musculoskeletal: no symptoms reported, gout Skin: no symptoms reported Psychiatric/Neurological: No Symptoms Reported Physical Exam-General Problems Physical Exam Vital Signs Vital Signs - First Documented 02/10/22 08:30 Temp 36.0 Pulse 68 Resp 30 B/P (MAP) 107/51 (69) Pulse Ox 98 Capillary Refill : Less Than 3 Seconds General Appearance: WD/WN, no apparent distress Eyes: Bilateral Eye Normal Inspection, Bilateral Eye PERRL, Bilateral Eye EOMI HEENT: PERRL/EOMI, normal ENT inspection Neck: supple, normal inspection Respiratory: lungs clear, no accessory muscle use, decreased breath sounds Cardiovascular: normal peripheral pulses, regular rate, rhythm, no edema, irregularly irregular Peripheral Pulses: 2+ Radial Pulses (R), 2+ Radial Pulses (L) Gastrointestinal: non tender, distended Rectal: deferred Skin: normal color, warm/dry Data Review Labs Laboratory Tests 02/10/22 09:00: White Blood Count 9.0, Red Blood Count 3.12L, Hemoglobin 8.4L, Hematocrit 27L, Mean Corpuscular Volume 86, Mean Corpuscular Hemoglobin 27, Mean Corpuscular Hemoglobin Concent 31L, Red Cell Distribution Width 18.6H, Platelet Count 100L, Mean Platelet Volume 12.9H, Immature Granulocyte % (Auto) 0, Neutrophils (%) (Auto) 80H, Lymphocytes (%) (Auto) 5L, Monocytes (%) (Auto) 9, Eosinophils (%) (Auto) 4, Basophils (%) (Auto) 1, Neutrophils # (Auto) 7.2, Lymphocytes # (Auto) 0.5L, Monocytes # (Auto) 0.8, Eosinophils # (Auto) 0.4H, Basophils # (Auto) 0.1, Immature Granulocyte # (Auto) 0.0, Neutrophils % (Manual) 85, Lymphocytes % (Manual) 7, Monocytes % (Manual) 5, Eosinophils % (Manual) 3, Basophils % (Manual) 0, Nucleated Red Blood Cells 1, Hypochromasia SLIGHT, Poikilocytosis SLIGHT, Anisocytosis SLIGHT, Target Cells SLIGHT, Tear Drop Cells SLIGHT, Elliptocytes SLIGHT, Prothrombin Time 44.8H, INR Comment 4.8H, Activated Partial Thromboplast Time 50H, Sodium Level 134L, Potassium Level 5.2H, Chloride Level 100, Carbon Dioxide Level 20L, Anion Gap 14, Blood Urea Nitrogen 115*H, Creatinine 4.27#H, Estimat Glomerular Filtration Rate 13, BUN/Creatinine Ratio 27, Glucose Level 88, Calcium Level 8.9, Corrected Calcium 9.1, Magnesium Level 2.8H, Total Bilirubin 2.3H, Aspartate Amino Transf (AST/SGOT) 60H, Alanine Aminotransferase (ALT/SGPT) 58H, Alkaline Phosphatase 72, Troponin I 0.212H, B- Type Natriuretic Peptide 1865.7H, Total Protein 6.1L, Albumin 3.7, Lipase 35 Radiology NAME: LADONNA ZEE [facility] REC#: [id number] PT STATUS: REG ER : 1940 PHYSICIAN: FANTA BUCK MD ADMIT DATE: 02/10/22/ER Draft Date of Exam:02/10/22 CHEST 1 VIEW, AP/PA ONLY CLINICAL INDICATION: Patient with chest pain. EXAM: Portable chest x-ray, upright view. COMPARISON: Chest x-ray dated 02/06/2022. FINDINGS: There is cardiomegaly with minimal pulmonary vascular congestion. There is interval development of groundglass consolidation involving the left lung base. There is mild right basilar atelectasis. There is blunting of the left costophrenic angle and a left pleural effusion may be considered. There is no pneumothorax. Postop changes of the chest are seen, consistent with CABG. Cardiac pacemaker/AICD is in stable position. Interval development of fracture with callus formation involving the lateral aspect of the left T7 and T8 level. IMPRESSION: 1: There is interval development of groundglass consolidation involving the left lung base (which may represent atelectasis versus infiltrate) and left pleural effusion. 2: There is mild right basilar atelectasis. 3: There is cardiomegaly with minimal pulmonary vascular congestion. 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 HPI per ED: 81-year-old male with past medical history of CAD, CHF, liver disease coming in with his due to concerns for multiple issues. Short of breath for several weeks, abdomen becoming more swollen over the past couple weeks, pain in the right side of his neck going down to his right side in general. Released from the hospital Thursday for all of these similar symptoms, but continue to worsen. Otherwise denying any fever, vomiting, weakness, numbness, or any other concerns When I spoke to the pt this afternoon, his and son were at bedside. states that he got worse over the weekend, couldn't breathe today and came back to the ER. Pt and family state that Dr. Saba told them he had his abdomen drained "a while ago", but they don't remember this happening. Pt states his belly has been progressively getting bigger, he told "I'm gonna " and that is why they brought him in. Allergies and Home Medications Allergies Coded Allergies: Penicillins (Verified Allergy, Unknown, 04/26/08) Patient Home Medication List Home Medication List Reviewed: Yes Acetaminophen (Tylenol Extra Strength) 500 Mg Tablet, 500 MG PO TID PRN for PAIN-MILD (1-4), (Reported) Entered as Reported by: BERNY DALTON on 02/10/22 1410 Last Action: Reviewed Allopurinol (Allopurinol) 300 Mg Tablet, 300 MG PO DAILY, (Reported) Entered as Reported by: MOE PICKETT on 02/07/22 1155 Last Action: Reviewed Aspirin (Aspirin EC) 81 Mg Tablet.dr, 81 MG PO HS, (Reported) Entered as Reported by: BHARAT NAYAK on 07/17/15 1348 Last Action: Reviewed Carvedilol (Carvedilol) 3.125 Mg Tablet, 3.125 MG PO BID, (Reported) Entered as Reported by: MOE PICKETT on 02/07/22 115 Last Action: Reviewed Fexofenadine HCl (Heather Allergy) 180 Mg Tablet, 90 MG PO BID, (Reported) Entered as Reported by: BERNY DALTON on 02/10/22 1410 Last Action: Reviewed Insulin Degludec (Tresiba Flextouch U-100) 100 Unit/Ml (3 Ml) Insuln.pen, 10 UNITS SC 1400, (Reported) Entered as Reported by: MOE PICKETT on 02/07/22 1219 Last Action: Reviewed Nitroglycerin (Nitroglycerin) 0.4 Mg Tab.subl, 0.4 MG SL UD PRN for CHEST PAIN (ANGINA), (Reported) Entered as Reported by: BERNY DALTON on 02/10/22 1409 Last Action: Reviewed Pantoprazole Sodium (Pantoprazole Sodium) 40 Mg Tablet.dr, 40 MG PO DAILY, (Reported) Entered as Reported by: MOE PICKETT on 02/07/22 115 Last Action: Reviewed Warfarin Sodium (Warfarin Sodium) 5 Mg Tablet, 5 MG PO Q48H, (Reported) Entered as Reported by: BERNY DALTON on 02/10/22 1412 Last Action: Held Warfarin Sodium (Warfarin Sodium) 5 Mg Tablet, 7.5 MG PO Q48H, (Reported) Entered as Reported by: BERNY DALTON on 02/10/22 1413 Last Action: Held Discontinued Medications Carvedilol (Carvedilol) 6.25 Mg Tablet, 6.25 MG PO BID, (Reported) Discontinued Reason: No Longer Taking Entered as Reported by: BHARAT NAYAK on 07/17/15 1241 Digoxin (Digox) 125 Mcg Tablet, 125 MCG PO DAILY, (Reported) Discontinued Reason: No Longer Taking Entered as Reported by: BHARAT NAYAK on 07/17/15 1241 Digoxin (Digoxin) 125 Mcg (0.125 Mg) Tablet, 62.5 MCG PO DAILY, (Reported) Entered as Reported by: MOE PICKETT on 02/07/22 1155 Last Action: Discontinued Docusate Sodium (Docusate Sodium) 100 Mg Capsule, 200 MG PO HS, (Reported) Discontinued Reason: No Longer Taking Entered as Reported by: CAMI PRECIADO on 02/19/16 1225 Famotidine (Famotidine) 20 Mg Tablet, 20 MG PO BID, (Reported) Discontinued Reason: No Longer Taking Entered as Reported by: BHARAT NAYAK on 05/07/15 1112 Fexofenadine HCl (Heather Allergy) 60 Mg Tablet, 60 MG PO BID, (Reported) Discontinued Reason: Prescription changed Entered as Reported by: HAYLEY HERRMANN on 05/04/15 1121 Furosemide (Furosemide) 40 Mg Tablet, 40 MG PO BID, (Reported) Discontinued Reason: Prescription changed Entered as Reported by: BHARAT NAYAK on 10/04/15 0939 Furosemide (Furosemide) 40 Mg Tablet, 40 MG PO BID, (Reported) Entered as Reported by: BERNY DALTON on 02/10/22 1408 Last Action: Discontinued Hydrocodone Bit/Acetaminophen (Lortab 5 Mg Tablet) 1 Each Tablet, 0.5-1 TAB PO Q6H PRN for PAIN Discontinued Reason: No Longer Taking Prescribed by: HERO WORKMAN on 01/04/16 1239 Isosorbide Mononitrate (Isosorbide Mononitrate ER) 30 Mg Tab.er.24h, 30 MG PO DAILY, (Reported) Discontinued Reason: No Longer Taking Entered as Reported by: BHARAT NAYAK on 05/07/15 1112 Metolazone (Metolazone) 2.5 Mg Tablet, 2.5 MG PO TU,FR, (Reported) Entered as Reported by: CAMI PRECIADO on 02/19/16 1225 Last Action: Discontinued [place]-3/Dha/Epa/Fish Oil (Fish Oil 1,000 Mg Softgel) 1,000 Mg Capsule, 1,000 MG PO HS, (Reported) Discontinued Reason: No Longer Taking Entered as Reported by: THERON RODRIGUEZ on 02/13/10 1006 [place]-3/Dha/Epa/Fish Oil (Fish Oil 1,000 mg Softgel) 1,000 Mg (120 Mg-180 Mg) Capsule, 2,000 MG PO DAILY, (Reported) Entered as Reported by: MOE PICKETT on 02/07/221154 Last Action: Discontinued [place]-3/Dha/Epa/Fish Oil (Fish Oil 1,000 mg Softgel) 1,000 Mg (120 Mg-180 Mg) Capsule, 1,000 MG PO HS, (Reported) Entered as Reported by: MOE PICKETT on 02/07/221154 Last Action: Discontinued Potassium Chloride (Potassium Chloride) 10 Meq Tablet.er, 10 MEQ PO DAILY, (Reported) Discontinued Reason: No Longer Taking Entered as Reported by: BHARAT NAYAK on 05/07/15 1112 Potassium Chloride (Potassium Chloride) 10 Meq Tab.er.prt, 10 MEQ PO DAILY, (Reported) Entered as Reported by: MOE PICKETT on 02/07/221154 Last Action: Discontinued Sacubitril/Valsartan (Entresto 24 mg-26 mg Tablet) 1 Each Tablet, 1 EACH PO BID Discontinued Reason: No Longer Taking Prescribed by: JEIMY SABA on 01/06/16 0909 Sacubitril/Valsartan (Entresto 24 mg-26 mg Tablet) 24 Mg-26 Mg Tablet, 1 TAB PO BID, (Reported) Discontinued Reason: Prescription changed Entered as Reported by: MOE PICKETT on 02/07/221154 Sacubitril/Valsartan (Entresto 24 mg-26 mg Tablet) 24 Mg-26 Mg Tablet, 1 TAB PO BID, (Reported) Entered as Reported by: BERNY DALTON on 02/10/22 1407 Last Action: Discontinued Simvastatin (Simvastatin) 10 Mg Tablet, 10 MG PO HS, (Reported) Entered as Reported by: MOE PICKETT on 02/07/221154 Last Action: Discontinued Spironolactone (Spironolactone) 25 Mg Tablet, 25 MG PO HS, (Reported) Entered as Reported by: MOE PICKETT on 02/07/221154 Last Action: Discontinued Warfarin Sodium (Warfarin Sodium) 5 Mg Tablet, 5 MG PO Q48H @HS, (Reported) Discontinued Reason: Prescription changed Entered as Reported by: CAMI PRECIADO on 02/19/16 1225 Warfarin Sodium (Warfarin Sodium) 5 Mg Tablet, 7.5 MG PO Q48H @HS, (Reported) Discontinued Reason: Prescription changed Entered as Reported by: CAMI PRECIADO on 02/19/16 2485 Past Jdgozez-Nscbpw-Luzhju Hx Surgeries History of Surgeries: Yes Surgeries: Cardiac, CABG, Coronary Stent, Gallbladder, Orthopedic, Pacemaker Respiratory History of Respiratory Disorde: Yes Respiratory Disorders: Sleep Apnea Cardiovascular History of Cardiac Disorders: Yes Cardiac Disorders: Atrial Fibrillation, Coronary Artery Disease, Heart Attack Neurological History of Neurological Disord: Yes Neurological Disorders: TIA Genitourinary History of Genitourinary Disor: Yes Genitourinary Disorders: Benign Prostatic Hyperpl Gastrointestinal History of Gastrointestinal Di: Yes Gastrointestinal Disorders: Gastroesophageal Reflux, Liver Disease/Jaundice, Gall Bladder Disease Musculoskeletal Musculoskeletal Disorders: Arthritis, Chronic Back Pain Endocrine History of Endocrine Disorders: Yes Endocrine Disorders: Diabetes, Insulin dep HEENT History of HEENT Disorders: No Loss of Vision: Bilateral Hearing Impairment: Hard of Hearing Cancer History of Cancer: No Psychosocial History of Psychiatric Problem: Yes Behavioral Health Disorders: Depression Family Medical History Significant Family History: Diabetes (pt denied his mother had diabetes) Family Medial History: Patient reports no known family medical history. Review of Systems-General Constitutional: No chills, No fever EENTM: No blurred vision, No eye pain Respiratory: No cough; short of breath (Secondary to ascites) Cardiovascular: No chest pain; Hx of Intervention, palpitations, vascular heart diseas Gastrointestinal: abdominal pain ("uncomfortable"), jaundice; No nausea, No vomiting Genitourinary: No decreased output, No hematuria Musculoskeletal: gout, muscle stiffness, muscle cramps Skin: No dryness, No pruritus Psychiatric/Neurological: Depressed; Denies Seizure Physical Exam-General Problems Physical Exam General Appearance: WD/WN, no apparent distress Eyes: Bilateral Eye PERRL, Bilateral Eye EOMI HEENT: pharynx normal, scleral icterus (R), scleral icterus (L) Neck: non-tender, supple Respiratory: no respiratory distress, no accessory muscle use, decreased breath sounds (at bases) Cardiovascular: no edema, no murmur, irregularly irregular Gastrointestinal: non tender, no organomegaly, no pulsatile mass, distended, hernia (umbilical hernia) Rectal: deferred Extremities: non-tender, no pedal edema, no calf tenderness Neurologic/Psychiatric: alert, normal mood/affect, oriented x 3 Skin: warm/dry, jaundice Lymphatic: no adenopathy (neck, axilla or groin) Data Review Radiology Date of Exam:02/06/22 CT ABDOMEN/PELVIS WO CT ABDOMEN/PELVIS WO TECHNIQUE: Unenhanced CT imaging of the abdomen and pelvis was performed. 2-D reformats are created and submitted for interpretation. Automatic exposure controls were utilized to optimize patient dose. INDICATION: Abdominal swelling COMPARISON: 05/11/2015 FINDINGS: Lower chest: Small left pleural effusion. Scattered areas of atelectasis present in the lung bases. Peritoneum: A small to moderate amount of simple appearing ascites is present. No loculated fluid collections or free intraperitoneal air. Liver and biliary system: Nodular liver is indicative of cirrhosis. No focal hepatic lesion is appreciated by noncontrast imaging. Cholecystectomy. No biliary duct dilatation. Spleen and Pancreas: Spleen is normal. Unenhanced pancreas is grossly normal. Adrenals: Normal. tract: No renal or ureteral calculi. No obstructive uropathy. There is a 3.8 x 3.5 cm exophytic cyst in the mid aspect of the right kidney. Urinary bladder is partially filled. Prostate is not enlarged. GI tract: Stomach is decompressed. No bowel obstruction. No pericolonic inflammatory changes. No features of acute appendicitis. Vasculature and Lymph nodes: Normal caliber aorta has severe calcification. No abdominal or pelvic lymphadenopathy. Musculoskeletal: No concerning osseous lesion. Multilevel laminectomies in the lower lumbar spine. IMPRESSION: 1. Cirrhosis with small to moderate amount of ascites. 2. Partially filled urinary bladder could account for wall thickening. Correlation with urinalysis is suggested to assess for cystitis. 3. Findings are in agreement with the preliminary report. Dictated by: Dictated on workstation # [id number] Dict: 02/07/22 0704 Trans: 02/07/2210 CV [id number] Interpreted by: CLAUS GARCIA MD Electronically signed by: CLAUS GARCIA MD 02/07/22 0910 Assessment/Plan Assessment/Plan Assessment/Plan Ascites, discomfort Consider paracentesis Continue Lasix Pain medications SOB Atelectasis 2/2 to abdominal fluid accumulation versus infiltrate Pleural effusion Decompensated Liver Disease Chronic AFib EDITH superimposed on CKD Supretherapeutic INR CAD HTN Hypercholesterolemia I reviewed the CT myself and looked back at the US from 2015; I also looked at Gen Sx notes from 2016. There was not a paracentesis done in 2016, pt was correct. I do not appreciate a lot more fluid compared to 2016 and it is still up around the liver. I am not sure there is enough fluid to drain by paracentesis. In fact, I think medical treatment (diuresis) would be better for pt. In addition, pt is on Coumadin and his INR is 4.8. I would have to wait for it to get below [address] Saba about holding the coumadin. At this point in time I don't think pt will get a good enough benefit to risk damage to intestine. Pt has a pulse Ox of 99-100% on room air, so even though he states he is having trouble breathing; he is getting enough O2. I will follow this pt in case he gets worse. Supervisory-Addendum Brief Verification & Attestation Participated in pt care: history, MDM, physical Personally performed: exam, history, MDM, supervision of care Care discussed with: Medical Student Procedures: n/a Verification and Attestation of Medical Student E/M Service A medical student performed and documented this service. I then reviewed and verified all information documented by the medical student and made modifications to such information, when appropriate. I personally performed a physical exam, medical decision making and then discussed any differences between the notes and made revisions as necessary to create one note. Minor Hunter , 02/10/22 , 16:39 RICHIE CHAPMAN Feb 10, 2022 12:15 MINOR HUNTER DO Feb 10, 2022 16:27
--- NOTE | 2022-02-10 12:41 | Consultation-Cardiology ---
HPI-Cardiology Cardiology Consultation Date of Consultation 02/10/22 Date of Admission Time Seen by Provider: 12:35 Indication: Generalized weakness, shortness of breath HPI 81-year-old gentleman with history of congestive heart failure, coronary artery disease, renal failure and liver failure. He was seen in the hospital last week and discharged to follow-up with primary care physician and evaluate with nephrology and software support analyst. Patient reported that he was having worsening of symptoms, increasing abdominal girth, more shortness of breath on exertion in addition to neck and back pain radiating to the right shoulder and arm. No palpitation. No syncope or near syncopal episodes. Patient was admitted to cardiac stepdown unit Home Medications & Allergies Allergies: Coded Allergies: Penicillins (Verified Allergy, Unknown, 04/26/08) Home Medication List Reviewed: Yes YBR-Bwyglc-Fzajgf Hx Patient Social History Marital Status: Employed/Student: retired Smoking Status: Former Smoker Type Used: Cigarettes, Smokeless Tobacco Recent Hopitalizations: Yes Have you traveled recently?: No Alcohol Use?: No Substance type: Caffeine Immunizations Up To Date Tetanus Booster (TDap): Unknown Past Medical History Discussed below Family Medical History Significant Family History: No Pertinent Family Hx Family History: Patient reports no known family medical history. Review of Systems-General Review of Systems Constitutional: see HPI; No chills, No fever; malaise, weakness EENTM: see HPI; No blurred vision, No eye pain Respiratory: see HPI; No cough; dyspnea on exertion, orthopnea, short of breath (Secondary to ascites) Cardiovascular: see HPI, chest pain; No edema, No Hx of Intervention, No palpitations, No syncope; vascular heart diseas; No other Gastrointestinal: see HPI, loss of appetite, other (Increased abdominal distention) Genitourinary: see HPI; No decreased output Musculoskeletal: see HPI, back pain, gout Skin: no symptoms reported, see HPI Psychiatric/Neurological: No Symptoms Reported, See HPI All Other Systems Reviewed Negative Unless Noted: Yes Reviewed Test Results Reviewed Test Results Lab Laboratory Tests Test 02/10/22 09:00 Range/Units White Blood Count 9.0 4.3-11.0 10^3/uL Red Blood Count 3.12 L 4.30-5.52 10^6/uL Hemoglobin 8.4 L 13.3-17.7 g/dL Hematocrit 27 L 40-54 % Mean Corpuscular Volume 86 80-99 fL Mean Corpuscular Hemoglobin 27 25-34 pg Mean Corpuscular Hemoglobin Concent 31 L 32-36 g/dL Red Cell Distribution Width 18.6 H 10.0-14.5 % Platelet Count 100 L 130-400 10^3/uL Mean Platelet Volume 12.9 H 9.0-12.2 fL Immature Granulocyte % (Auto) 0 % Neutrophils (%) (Auto) 80 H 42-75 % Lymphocytes (%) (Auto) 5 L 12-44 % Monocytes (%) (Auto) 9 0-12 % Eosinophils (%) (Auto) 4 0-10 % Basophils (%) (Auto) 1 0-10 % Neutrophils # (Auto) 7.2 1.8-7.8 10^3/uL Lymphocytes # (Auto) 0.5 L 1.0-4.0 10^3/uL Monocytes # (Auto) 0.8 0.0-1.0 10^3/uL Eosinophils # (Auto) 0.4 H 0.0-0.3 10^3/uL Basophils # (Auto) 0.1 0.0-0.1 10^3/uL Immature Granulocyte # (Auto) 0.0 0.0-0.1 10^3/uL Neutrophils % (Manual) 85 % Lymphocytes % (Manual) 7 % Monocytes % (Manual) 5 % Eosinophils % (Manual) 3 % Basophils % (Manual) 0 % Nucleated Red Blood Cells 1 Hypochromasia SLIGHT Poikilocytosis SLIGHT Anisocytosis SLIGHT Target Cells SLIGHT Tear Drop Cells SLIGHT Elliptocytes SLIGHT Prothrombin Time 44.8 H 12.2-14.7 SEC INR Comment 4.8 H 0.8-1.4 Activated Partial Thromboplast Time 50 H 24-35 SEC Sodium Level 134 L 135-145 MMOL/L Potassium Level 5.2 H 3.6-5.0 MMOL/L Chloride Level 100 98-107 MMOL/L Carbon Dioxide Level 20 L 21-32 MMOL/L Anion Gap 14 5-14 MMOL/L Blood Urea Nitrogen 115 *H 7-18 MG/DL Creatinine 4.27 #H 0.60-1.30 MG/DL Estimat Glomerular Filtration Rate 13 BUN/Creatinine Ratio 27 Glucose Level 88 70-105 MG/DL Calcium Level 8.9 8.5-10.1 MG/DL Corrected Calcium 9.1 8.5-10.1 MG/DL Magnesium Level 2.8 H 1.6-2.4 MG/DL Total Bilirubin 2.3 H 0.1-1.0 MG/DL Aspartate Amino Transf (AST/SGOT) 60 H 5-34 U/L Alanine Aminotransferase (ALT/SGPT) 58 H 0-55 U/L Alkaline Phosphatase 72 40-136 U/L Troponin I 0.212 H <0.028 NG/ML B-Type Natriuretic Peptide 1865.7 H <100.0 PG/ML Total Protein 6.1 L 6.4-8.2 GM/DL Albumin 3.7 3.2-4.5 GM/DL Lipase 35 8-78 U/L Radiology NAME: [facility]ON[facility] REC#: [id number] PT STATUS: REG ER : 1940 PHYSICIAN: FANTA BUCK MD ADMIT DATE: 02/10/22/ER Draft Date of Exam:02/10/22 CHEST 1 VIEW, AP/PA ONLY CLINICAL INDICATION: Patient with chest pain. EXAM: Portable chest x-ray, upright view. COMPARISON: Chest x-ray dated 02/06/2022. FINDINGS: There is cardiomegaly with minimal pulmonary vascular congestion. There is interval development of groundglass consolidation involving the left lung base. There is mild right basilar atelectasis. There is blunting of the left costophrenic angle and a left pleural effusion may be considered. There is no pneumothorax. Postop changes of the chest are seen, consistent with CABG. Cardiac pacemaker/AICD is in stable position. Interval development of fracture with callus formation involving the lateral aspect of the left T7 and T8 level. IMPRESSION: 1: There is interval development of groundglass consolidation involving the left lung base (which may represent atelectasis versus infiltrate) and left pleural effusion. 2: There is mild right basilar atelectasis. 3: There is cardiomegaly with minimal pulmonary vascular congestion. Dictated on workstation # [id number] Dict: 02/10/2224 Trans: 02/10/22 [id number] [id number] Interpreted by: SUNDAY ALONZO MD Electronically signed by: Physical Exam Physical Exam Vital Signs Vital Signs - First Documented 02/10/22 02/10/22 08:30 12:12 Temp 36.0 Pulse 68 Resp 30 B/P (MAP) 107/51 (69) Pulse Ox 98 O2 Delivery Room Air Capillary Refill : Less Than 3 Seconds Height, Weight, BMI Height: 6'0.00" Weight: 190lbs. 0.0oz. [id number]; 25.66 BMI Method:Stated General Appearance: No Apparent Distress, WD/WN Eyes: Bilateral Eye Normal Inspection, Bilateral Eye PERRL, Bilateral Eye EOMI, Bilateral Eye Other (Very mild scleral icterus) HEENT: PERRL/EOMI, Normal ENT Inspection, Pharynx Normal Neck: Full Range of Motion, Normal Inspection, Non Tender, Supple Respiratory: Chest Non Tender, Lungs Clear, Normal Breath Sounds, No Accessory Muscle Use, No Respiratory Distress Cardiovascular: Regular Rate, Rhythm, No Edema, Normal Peripheral Pulses Gastrointestinal: Normal Bowel Sounds, Non Tender, Other (Distention with fluid wave, no tenderness or rebound) Back: Normal Inspection, No CVA Tenderness, No Vertebral Tenderness Extremity: Normal Capillary Refill, Normal Inspection, Normal Range of Motion, Non Tender, No Calf Tenderness Neurologic/Psychiatric: Alert, Oriented x3, No Motor/Sensory Deficits, Normal Mood/Affect Skin: Warm/Dry Lymphatic: No Adenopathy A/P-Cardiology Admission Diagnosis Non-ST elevation myocardial infarction Acute renal failure Ascites Congestive heart failure, acute on chronic left ventricular systolic and diastolic dysfunction, ischemic cardiomyopathy and valvular heart disease Assessment/Plan Elevated troponin level, non-ST elevation myocardial infarction most probably type II VT secondary to small vessel disease and renal failure and hypotension. Conservative management is neck commended no intervention is recommended at this point. Acute on chronic renal failure, worsening renal function, history of chronic kidney disease stage IV. Patient was instructed on decreasing Lasix dose. At this point I will hold Lasix and DC Entresto permanently due to his elevated creatinine level. Coumadin toxicity, initially his INR was around 6, currently coming down and has been holding Coumadin for the past 4 days. Ascites, hepatic cirrhosis. Worsening abdominal distention Discussed in length with the patient and his , he will need referral for bible worker and may require paracentesis. Patient had hospitalization in 2019 for similar events. He will require paracentesis on this admission. Congestive heart failure, acute on chronic left ventricular systolic and diastolic dysfunction. Echocardiogram was done on February 07, 2022 with ejection fraction 45 to 50%. Valvular heart disease with moderate to severe mitral and tricuspid regurgitation, pulmonary artery pressure 30 to 35 mmHg. Patient was referred for evaluation for possible mitral clip. He was initially referred to [facility] or [facility]. At this point it is conservative management Coronary artery disease history of CABG x4 done in 2007 Cardiac catheterization done in April 2015 with patent vein graft to the diagonal artery filling the diagonal retrograde and filling the LAD, patent vein graft to the obtuse marginal branch, collaterals filling the dominant right coronary artery and occluded vein graft to the right coronary artery. Occluded [place] right coronary artery. Severe disease at the mid and distal LAD with a long segment has dual supply through the [place] artery and retrograde filling from the diagonal system. Conservative management was recommended Stress test done in 2018 showing fixed defect with no significant reversible ischemia Patient has been refusing to have any further testing. Conservative management is recommended Atrial fibrillation, history of tachybradycardia episode, history of permanent pacemaker. Currently heart rate is controlled. Continue to monitor Borderline hypotension secondary to intravascular volume depletion. Previously I decreased the Lasix and recommend maintaining Lasix 40 mg daily. At this point I recommend holding diuretics and monitor renal function Hyperlipidemia, monitor lipids. Hold statin History of permanent pacemaker/ICD, continue to monitor as an outpatient History of carotid stenosis. History of cholecystectomy JEIMY WAGNER MD Feb 10, 2022 12:40
--- NOTE | 2022-02-10 12:52 | History & Physical-Hospitalist ---
TIGIST WALKER Jossie MED STUDENT 02/10/22 1252: History of Present Illness HPI/Chief Complaint Andres is an 81 yo male who was admitted to cardiac step down for NSTEMI and decompensated liver failure. Pt has hx of liver failure, CHF, renal disease, Afib, HTN, HLD, CAD with CABG and LILIANA not on CPAP. Pt was just discharged from the hospital on Thursday02/07/22 for similar symptoms, but states these worsened over the weekend. Pt has concerns of increasing SOA, abdominal swelling and pain in the right side of his neck and arm. Pt reports his main concern is that he is not sleeping well which is due to his generalized aches and pains from his swollen abdomen and neck/arm. He confirms chills, SOA and cough. Denies fever, N/V/D, dysuria, frequency or hesitancy with urination, chest pain or tightness. He denies any hx of kidney disease, but states everyone keeps telling him he has it. Cardiology has been consulted for NSTEMI. General surgery has been consulted for paracentesis. Source: patient Exam Limitations: no limitations Date Seen 02/10/22 Time Seen by a Provider: 12:45 Attending Physician Nola Perez MD PCP Admitting Physician: Yoandy Samuels MD Attending Physician: Yoandy Samuels MD Referring Physician Date of Admission Feb 10, 2022 at 11:10 Home Medications & Allergies Home Medications Reviewed patient Home Medication Reconciliation performed by pharmacy medication reconciliations device repair technician and/or nursing. Patients Allergies have been reviewed. Allergies Allergies Coded Allergies Penicillins (Verified Allergy, Unknown, 04/26/08) Past Giecvte-Aducha-Rqawth Hx Patient Social History Marrital Status: Employed/Student: retired Tobacco Use?: Yes Tobacco type used: Cigarettes Smoking Status: Former Smoker Smokeless Tobacco Frequency: Former User Use of E-Cig and/or Vaping dev: No Substance use?: Yes Substance type: Caffeine Alcohol Use?: No Alcohol type: Beer Alcohol Frequency: Once in a while Pt feels they are or have been: No Immunizations Up To Date First/Initial COVID19 Vaccinat: YES Second COVID19 Vaccination Nader: YES Tetanus Booster (TDap): Unknown Hepatitis A: No Hepatitis B: No PED Vaccines UTD: No Seasonal Allergies Seasonal Allergies: Yes Current Status Advance Directives: Yes Advance Directive Location: Family to bring in copy Communicates: Verbally Primary Language: Mongolian Preferred Spoken Language: Mongolian Is interpretation needed?: No Sensory deficits: Vision impairment Implanted or Applied Medical D: Pacemaker Past Medical History Surgeries: Cardiac, CABG, Defibrillator, Eye Surgery, Gallbladder, Orthopedic, Pacemaker Sleep Apnea Currently Using CPAP: Yes (SENT IT BACK, BECAUSE PATIENT COULD NOT TOLERATE ) Currently Using BIPAP: No Atrial Fibrillation, Chronic Edema/Swelling, Coronary Artery Disease, Heart Attack, High Cholesterol, Hypertension TIA Sexually Transmitted Disease: No HIV/AIDS: No Benign Prostatic Hyperpl Liver Disease/Jaundice, Chronic Constipation, Pancreatitis, Gall Bladder Disease Arthritis, Chronic Back Pain Loss of Vision: Denies Hearing Impairment: Hard of Hearing Depression Recent Skin Changes Adverse Reaction/Blood Tranf: No Family Medical History Patient reports no known family medical history. No Pertinent Family Hx Review of Systems Constitutional: chills; No fever EENTM: No blurred vision, No double vision, No nose congestion Respiratory: cough, short of breath Cardiovascular: No chest pain; Hx of Intervention; No palpitations Gastrointestinal: constipation; No diarrhea, No nausea, No vomiting Genitourinary: No dysuria, No frequency, No hesitancy Musculoskeletal: neck pain Skin: No lesions, No lumps Psychiatric/Neurological: Denies Headache, Denies Numbness, Denies Weakness Physical Exam Physical Exam Vital Signs Vital Signs - First Documented 02/10/22 02/10/22 08:30 11:45 Temp 36.0 Pulse 68 Resp 30 B/P (MAP) 107/51 (69) Pulse Ox 98 O2 Delivery Room Air Capillary Refill : Less Than 3 Seconds Height, Weight, BMI Height: 6'0.00" Weight: 190lbs. 0.0oz. 86.400018jh; 25.66 BMI Method:Stated General Appearance: No Apparent Distress, Chronically ill HEENT: PERRL/EOMI, Moist Mucous Membranes Neck: Full Range of Motion Respiratory: Chest Non Tender, Lungs Clear, Normal Breath Sounds, No Accessory Muscle Use, No Respiratory Distress Cardiovascular: Regular Rate, Rhythm, No Murmur Gastrointestinal: Abnormal Bowel Sounds (unable to hear bowel sounds over ascites), Distended Back: Normal Inspection, No Vertebral Tenderness Extremity: Non Tender, No Pedal Edema Neurologic/Psychiatric: Alert, Oriented x3, Normal Mood/Affect Skin: Warm/Dry, Jaundice Results Results/Procedures Labs Laboratory Tests 12/5/22 09:00 Patient resulted labs reviewed. Assessment/Plan Admission Diagnosis NSTEMI and decompensated liver failure Assessment and Plan DEITH on CKD Decompensated Liver Failure NSTEMI Anemia Hyperkalemia Coumadin toxicity Pleural effusion CHF HLD Afib with pacemaker/defib HTN LILIANA not on CPAP EDITH on CKD -Pt does not desire hemodialysis at this time -Hold lasix and d/c entresto per cardiology -Will monitor BUN/Cr closely Decompensated Liver Failure -Gen surg consulted for possible paracentesis -Total bili 2.3, AST 60 NSTEMI -Cardiology consulted, recommended conservative management -Telemetry -Echo on 02/07/22 showed EF of 45-50% Anemia -Consider iron studies -Likely anemia of chronic disease -Consider starting ferrous sulfate tablets Hyperkalemia -Kayexalate Coumadin toxicity -Coumadin has been stopped for several days, will continue to hold per cardiology Pleural effusion Generalized pain -Lortab CHF -EF 45-50% -Conservative management HLD -Hold statin per cardiology Afib with pacemaker/defib -Telemetry HTN -Currently hypotensive, will continue to monitor with frequent BP checks LILIANA not on CPAP Disposition: Pt likely to stay 24 hours for paracentesis. Pt would likely benefit from hospice/palliative care discussion at some point during hospital stay. He has multiple comorbidities that set him up for a poor prognosis. Most of these comorbidities are being conservatively managed at this point. DVT ppx: SCDs and ambulation Code Status: Full COde Diagnosis/Problems Diagnosis/Problems (1) Atrial fibrillation Status: Chronic (2) CHF (congestive heart failure) Status: Chronic (3) Supratherapeutic INR Status: Acute (4) Abdominal ascites Status: Acute (5) Elevated bilirubin Status: Acute (6) NSTEMI (non-ST elevated myocardial infarction) Status: Acute (7) Acute kidney injury superimposed on CKD Status: Acute (8) Decompensated liver disease Status: Acute YOANDY SAMUELS MD 02/10/22 [id number]: History of Present Illness Time Seen by a Provider: 13:15 Past Tetqval-Tequma-Gvdvho Hx Past Medical History Renal Failure Liver Disease/Jaundice, Cirrhosis Family Medical History Patient reports no known family medical history. No Pertinent Family Hx Results Results/Procedures Imaging: Reviewed Imaging Report Assessment/Plan Admission Diagnosis Admission Status: Inpatient Order (span 2 midnights) Reason for Inpatient Admission: NSTEMI Liver failure Kidney failure Assessment and Plan Admitted with NSTEMI, liver failure, and EDITH on CKD. Cardiology and surgery consulted. Possible paracentesis. Hold coumadin with supratherapeutic INR. Discussed poor prognosis with advanced cirrhosis and renal failure. Introduced hospice and family would like more information prior to discharge. Diagnosis/Problems Diagnosis/Problems (1) NSTEMI (non-ST elevated myocardial infarction) Status: Acute (2) Decompensated liver disease Status: Acute (3) Acute kidney injury superimposed on CKD Status: Acute (4) Atrial fibrillation Status: Chronic (5) Supratherapeutic INR Status: Acute (6) CHF (congestive heart failure) Status: Chronic (7) Abdominal ascites Status: Acute (8) Elevated bilirubin Status: Acute Supervisory-Addendum Brief Verification & Attestation Participated in pt care: history, MDM, physical Personally performed: exam, history, MDM, supervision of care Care discussed with: Medical Student Procedures: n/a Results interpretation: Verified all documentation A medical student performed and documented this service in my presence. I reviewed and verified all information documented by the medical student and made modifications to such information, when appropriate. I personally performed the physical exam and medical decision making. TIGIST WALKER MED STUDENT Feb 10, 2022 12:52 YOANDY SAMUELS MD Feb 10, 2022 18:45
[2022-02-10] MEDS ORDERED: SACU1TAB2 PO (14:07)
[2022-02-10] MEDS ORDERED: FURO40TA4 PO (14:08)
[2022-02-10] MEDS ORDERED: NITR0.4T42 SL (14:09)
[2022-02-10] MEDS ORDERED: ACET-2267 PO (14:10)
[2022-02-10] MEDS ORDERED: FEXO180T84 PO (14:10)
[2022-02-10] MEDS ORDERED: WARF-48 PO ×2 (14:12→14:13)
[2022-02-10] MEDS ORDERED: inSUlin ASPART (NovoLOG) 1 UNIT/0.01 ML (CHARGE PER UNIT) SC SCH (16:00)
[2022-02-10] MEDS ORDERED: RT-ALBUTEROL/IPRATROPIUM 3 ML (DUONEB) VIAL INH PRN (16:45)
[2022-02-10] MEDS: inSUlin ASPART (NovoLOG) 1 UNIT/0.01 ML (CHARGE PER UNIT) SC SCH ×2 (17:15→21:11)
[2022-02-10] MEDS ORDERED: SACUBITRIL/VALSARTAN 24/26 MG (ENTRESTO) TABLET PO SCH (21:00)
[2022-02-10] MEDS ORDERED: AtorvaSTATin TABLET 10 MG TABLET PO SCH (21:00)
[2022-02-10] MEDS: RT-ALBUTEROL/IPRATROPIUM 3 ML (DUONEB) VIAL INH SCH (21:54)
[2022-02-11] VITALS (7 sets, daily range): BP systolic 79–92; BP diastolic 50–72
[2022-02-11 04:57] LABS: HEMOGLOBIN 8.1 g/dL (13.3-17.7); MEAN PLATELET VOLUME 12.1 fL (9.0-12.2); WHITE BLOOD COUNT 8.2 10^3/uL (4.3-11.0)
[2022-02-11 05:17] LABS: ALBUMIN 3.6 GM/DL (3.2-4.5); BILIRUBIN,TOTAL 2.1 MG/DL (0.1-1.0); CALCIUM 8.6 MG/DL (8.5-10.1); CREATININE SERUM 4.78 MG/DL (0.60-1.30); INR 4.2 (0.8-1.4); PHOSPHORUS 5.5 MG/DL (2.3-4.7); POTASSIUM 5.2 MMOL/L (3.6-5.0); PROTHROMBIN TIME PATIENT 40.2 SEC (12.2-14.7); TOTAL PROTEIN 5.9 GM/DL (6.4-8.2)
[2022-02-11] MEDS: inSUlin ASPART (NovoLOG) 1 UNIT/0.01 ML (CHARGE PER UNIT) SC SCH ×2 (06:08→11:30)
[2022-02-11] MEDS ORDERED: FUROSEMIDE 40 MG (LASIX) TAB PO SCH (07:00)
--- NOTE | 2022-02-11 08:58 | Cardiology Progress Note ---
Subjective Date Seen by Provider: Feb 11, 2022 Time Seen by Provider: 08:54 Subjective/Events-last exam Patient was seen at bedside, laying down in bed. Still hypotensive. No chest pain Review of Systems General: No Chills, No Night Sweats; Fatigue; No Malaise, No Appetite, No Other HEENT: No Head Aches, No Visual Changes, No Eye Pain, No Ear Pain, No Dysphasia, No Sinus Congestion, No Post Nasal Drip, No Sore Throat, No Other Pulmonary: Dyspnea; No Cough, No Pleuritic Chest Pain, No Other Cardiovascular: No: Chest Pain, Palpitations, Orthopnea, Paroxysmal Noc. Dyspnea, Edema, Lt Headedness, Other Objective-Cardiology Exam Last Set of Vital Signs Vital Signs 02/11/22 07:37 Temp 36.4 Pulse 90 Resp 14 B/P (MAP) 79/57 (64) Pulse Ox 94 O2 Delivery Room Air I&O Intake and Output 02/11/22 00:00 Intake Total 700 ml Balance 700 ml Intake Oral 700 ml # Voids 4 # Bowel Movements 1 Daily Weight Change No General: Alert, Oriented X3, Cooperative HEENT: Atraumatic, PERRLA Neck: Supple, No JVD, No Thyromegaly Lungs: Clear to Auscultation, Normal Air Movement Heart: Normal S1, Normal S2, No Murmurs, Other (Irregular rhythm) Abdomen: Normal Bowel Sounds, Soft, No Tenderness, No Masses, Other (Abdominal distention) Extremities: No Clubbing, No Cyanosis, Normal Pulses, No Tenderness/Swelling, Other (Mild edema) Skin: No Rashes, No Breakdown, No Significant Lesion Neuro: Normal Speech, Normal Tone, Sensation Intact Psych/Mental Status: Mental Status NL, Mood NL Results Lab Laboratory Tests 02/10/22 09:00 02/11/22 04:27 A/P-Cardiology Admission Diagnosis Non-ST elevation myocardial infarction Acute renal failure Ascites Congestive heart failure, acute on chronic left ventricular systolic and diastolic dysfunction, ischemic cardiomyopathy and valvular heart disease Assessment/Plan Elevated troponin level, non-ST elevation myocardial infarction most probably type II UT secondary to small vessel disease and renal failure and hypotension. Conservative management is recommended, no intervention is recommended at this point. Acute on chronic renal failure, worsening renal function, history of chronic kidney disease stage IV. Patient was instructed on decreasing Lasix dose as an outpatient. I discontinued Lasix, allopurinol and Entresto at this point due to renal failure KATE inhibitor and/or ARB are contraindicated due to renal failure Coumadin toxicity, initially his INR was around 6, currently coming down and has been holding Coumadin for the past 5 days. Ascites, hepatic cirrhosis. 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 Patient had hospitalization in 2019 for similar events. He will require paracentesis on this admission. Congestive heart failure, acute on chronic left ventricular systolic and diastolic dysfunction. Echocardiogram was done on February 07, 2022 with ejection fraction 45 to 50%. Valvular heart disease with moderate to severe mitral and tricuspid regurg itation, pulmonary artery pressure 30 to 35 mmHg. Patient was referred for evaluation for possible mitral clip. He was initially referred to [place] or [place]. At this point it is conservative management Coronary artery disease history of CABG x4 done in 2007 Cardiac catheterization done in April 2015 with patent vein graft to the diagonal artery filling the diagonal retrograde and filling the LAD, patent vein graft to the obtuse marginal branch, collaterals filling the dominant right coronary artery and occluded vein graft to the right coronary artery. Occluded barrow right coronary artery. Severe disease at the mid and distal LAD with a long segment has dual supply through the barrow artery and retrograde filling from the diagonal system. Conservative management was recommended Stress test done in 2018 showing fixed defect with no significant reversible ischemia Patient has been refusing to have any further testing. Conservative management is recommended Atrial fibrillation, history of tachybradycardia episode, history of permanent pacemaker. Currently heart rate is controlled. Continue to monitor Borderline hypotension secondary to intravascular volume depletion. Currently holding all his medication that could affect his blood pressure and continue to monitor Hyperlipidemia, I discontinued statin due to liver failure History of permanent pacemaker/ICD, continue to monitor as an outpatient History of carotid stenosis. History of cholecystectomy JEIMY WAGNER MD Feb 11, 2022 08:58
[2022-02-11] MEDS ORDERED: PANTOPRAZOLE 40 MG (PROTONIX) TAB PO SCH (09:00)
[2022-02-11] MEDS ORDERED: ALLOPURINOL 300 MG (ZYLOPRIM) TAB PO SCH (09:00)
[2022-02-11] MEDS ORDERED: DIGOXIN 0.125 MG (LANOXIN) TAB PO SCH (09:00)
[2022-02-11] MEDS: RT-ALBUTEROL/IPRATROPIUM 3 ML (DUONEB) VIAL INH SCH ×2 (09:27→15:19)
[2022-02-11] MEDS ORDERED: NS IV 1000 ML 1,000 ML IV SCH (12:15)
--- NOTE | 2022-02-11 14:55 | Progress Note - Surgery ---
Subjective Time Seen by a Provider: 11:23 Subjective/Events-last exam Pt seen and examined, he was sitting up in bed having conversation with Dr. Samuels. He denied increased abdominal pain. Denies any other problems. Review of Systems General: Fatigue Pulmonary: No Dyspnea, No Cough; Other (hard to take deep breaths) Cardiovascular: No: Chest Pain, Palpitations Gastrointestinal: No: Nausea, Vomiting, Abdominal Pain Objective Exam Vital Signs Date Time Temp Pulse Resp B/P (MAP) Pulse Ox O2 Delivery O2 Flow Rate FiO2 02/11/22 12:58 93 02/11/22 11:56 36.5 94 14 81/58 (66) 96 Room Air 02/11/22 09:27 98 Room Air 02/11/22 08:22 96 Room Air 02/11/22 07:37 36.4 90 14 79/57 (64) 94 Room Air 02/11/22 07:19 86 02/11/22 06:00 88 14 92/72 (79) 97 Room Air 02/11/22 05:41 100 18 83/55 (64) 96 Room Air 02/11/22 05:15 93 12 81/50 (60) 99 Room Air 02/11/22 04:59 87 31 81/52 (62) 97 Room Air 02/11/22 04:00 36.5 02/11/22 01:00 111 02/10/22 23:59 36.3 02/10/22 23:50 113 10 102/88 (93) 99 Room Air 02/10/22 21:54 98 Room Air 02/10/22 20:07 36.4 91 17 92/75 (81) 98 Room Air 02/10/22 20:00 97 Room Air 02/10/22 19:00 96 02/10/22 16:23 36.3 81 97 02/10/22 16:00 36.3 81 16 90/41 (57) 97 Room Air I & O 02/11/22 07:00 Intake Total 900 ml Output Total 325 ml Balance 575 ml Capillary Refill : Less Than 3 Seconds General Appearance: No Apparent Distress, Chronically ill HEENT: PERRL/EOMI, Moist Mucous Membranes Respiratory: Chest Non Tender, Lungs Clear, Normal Breath Sounds, No Accessory Muscle Use, No Respiratory Distress Cardiovascular: Regular Rate, Rhythm, No Murmur Peripheral Pulses: 2+ Radial Pulses (R), 2+ Radial Pulses (L) Gastrointestinal: non tender, no organomegaly, no pulsatile mass, distended, hernia (umbilical hernia) Neurologic/Psychiatric: Alert, Oriented x3 Skin: Warm/Dry, Jaundice Results Lab Laboratory Tests 02/10/22 15:46: Glucometer 119H 02/10/22 20:47: Glucometer 148H 02/11/22 04:27: White Blood Count 8.2, Red Blood Count 2.94L, Hemoglobin 8.1L, Hematocrit 26L, Mean Corpuscular Volume 87, Mean Corpuscular Hemoglobin 28, Mean Corpuscular Hemoglobin Concent 32, Red Cell Distribution Width 18.6H, Platelet Count 87L, Mean Platelet Volume 12.1, Percent Immature Platelet Fraction 7.6, Prothrombin Time 40.2H, INR Comment 4.2H, Sodium Level 131L, Potassium Level 5.2H, Chloride Level 99, Carbon Dioxide Level 20L, Anion Gap 12, Blood Urea Nitrogen 121*H, Creatinine 4.78#H, Estimat Glomerular Filtration Rate 11, BUN/Creatinine Ratio 25, Glucose Level 122H, Calcium Level 8.6, Corrected Calcium 8.9, Phosphorus Level 5.5H, Total Bilirubin 2.1H, Aspartate Amino Transf (AST/SGOT) 51H, Alanine Aminotransferase (ALT/SGPT) 55, Alkaline Phosphatase 71, Total Protein 5.9L, Albumin 3.6 Assessment/Plan Assessment/Plan Assessment/Plan Ascites, discomfort - unfortunately not enough fluid to consider paracentesis, Continue Lasix and Pain medications as needed SOB Atelectasis 2/2 to abdominal fluid accumulation versus infiltrate Pleural effusion Decompensated Liver Disease Chronic AFib EDITH superimposed on CKD Supretherapeutic INR CAD HTN Hypercholesterolemia I would not recommend paracentesis and will sign off, can reconsult if needed. MINOR HUNTER DO Feb 11, 2022 14:55
[2022-02-11] MEDS ORDERED: PANT40TA52 PO (15:40)
--- NOTE | 2022-02-11 16:37 | Discharge Summary ---
Discharge Summary Hospital Course Problems/Dx: (1) Acute kidney injury superimposed on CKD Status: Acute (2) NSTEMI (non-ST elevated myocardial infarction) Status: Acute (3) Decompensated liver disease Status: Acute (4) Atrial fibrillation Status: Chronic (5) Supratherapeutic INR Status: Acute (6) CHF (congestive heart failure) Status: Chronic (7) Abdominal ascites Status: Acute (8) Elevated bilirubin Status: Acute Hospital Course Date of Admission: Feb 10, 2022 at 11:10 Admission Diagnosis : EDITH on CKD, NSTEMI, Decompensated hepatic cirrhosis Family Physician/Provider: Nola Jordan MD Date of Discharge: 02/11/22 Discharge Diagnosis: EDITH on CKD, NSTEMI, Decompensated hepatic cirrhosis Hospital Course: Andres Scherer is an 81 year old male who presented with abdominal distension and pain. He was admitted with decompensated hepatic cirrhosis with ascites and EDITH on CKD. His course was complicated by NSTEMI and his troponin remained stable. Surgery and Cardiology were consulted and assisted with his care. Surgery evaluated for possible paracentesis but due to there not being a large enough pocket of fluid to drain, this was deferred. Most of his medications were held due to his renal and liver failure. His kidney function continued to worsen. He did not want to pursue hemodialysis. His case was discussed with his primary care physician, Dr. Jordan, via telephone. Palliative care was consulted and gave the family information regarding hospice care. He was discharged home in guarded condition. Labs and Pending Lab Test: Laboratory Tests 02/10/22 20:47: Glucometer 148H 02/11/22 04:27: White Blood Count 8.2, Red Blood Count 2.94L, Hemoglobin 8.1L, Hematocrit 26L, Mean Corpuscular Volume 87, Mean Corpuscular Hemoglobin 28, Mean Corpuscular Hemoglobin Concent 32, Red Cell Distribution Width 18.6H, Platelet Count 87L, Mean Platelet Volume 12.1, Percent Immature Platelet Fraction 7.6, Prothrombin Time 40.2H, INR Comment 4.2H, Sodium Level 131L, Potassium Level 5.2H, Chloride Level 99, Carbon Dioxide Level 20L, Anion Gap 12, Blood Urea Nitrogen 121*H, Creatinine 4.78#H, Estimat Glomerular Filtration Rate 11, BUN/Creatinine Ratio 25, Glucose Level 122H, Calcium Level 8.6, Corrected Calcium 8.9, Phosphorus Level 5.5H, Total Bilirubin 2.1H, Aspartate Amino Transf (AST/SGOT) 51H, Alanine Aminotransferase (ALT/SGPT) 55, Alkaline Phosphatase 71, Total Protein 5.9L, Albumin 3.6 Home Meds Active Pantoprazole Sodium 40 Mg Tablet.dr 40 Mg PO DAILY 30 Days Reported Heather Allergy (Fexofenadine HCl) 180 Mg Tablet 90 Mg PO BID TAKES 1/2 OF (180MG) TAB Tylenol Extra Strength (Acetaminophen) 500 Mg Tablet 500 Mg PO TID PRN Assessment/Pt Instructions See instructions Discharge Planning: >30 minutes discharge planning Discharge Instructions Discharge Diet: Low Sodium Diet Activity as Tolerated: Yes Consultations Cardiology Discharge Physical Examination Vital Signs Vital Signs Date Time Temp Pulse Resp B/P (MAP) Pulse Ox O2 Delivery O2 Flow Rate FiO2 02/11/22 16:01 36.5 93 14 81/58 98 Room Air General Appearance: No Apparent Distress, Chronically ill HEENT: PERRL/EOMI, Scleral Icterus (L), Scleral Icterus (R) Respiratory: Lungs Clear, No Respiratory Distress Cardiovascular: Regular Rate, Rhythm, No Murmur Gastrointestinal: Normal Bowel Sounds, Non Tender Extremity: Normal Inspection, Pedal Edema Skin: Warm/Dry, Jaundice Neurologic/Psychiatric: Alert, Normal Mood/Affect Allergies: Coded Allergies: Penicillins (Verified Allergy, Unknown, 04/26/08) Copy Copies To 1: NOLA JORDAN MD Discharge Summary Date of Admission Feb 10, 2022 at 11:10 Date of Discharge Feb 11, 2022 at 15:37 Discharge Date: Feb 11, 2022 Discharge Time: 15:37 Admission Diagnosis EDITH on CKD Consults/Procedures Consulations Cardiology, Surgery Comfort Measures/ End of Life Care: Hospice Care (Home) Discharge Diagnosis EDITH on CKD, NSTEMI, Cirrhosis (1) Acute kidney injury superimposed on CKD Status: Acute (2) NSTEMI (non-ST elevated myocardial infarction) Status: Acute (3) Decompensated liver disease Status: Acute (4) Atrial fibrillation Status: Chronic (5) Supratherapeutic INR Status: Acute (6) CHF (congestive heart failure) Status: Chronic (7) Abdominal ascites Status: Acute (8) Elevated bilirubin Status: Acute YOANDY ACOSTA MD Feb 11, 2022 16:22
== END 2022-02-11 15:37 | disposition home or self-care (01) | DRG 441 ==
LOC: EDUNIT# 08:29 → ER 08:31 → CSD 11:10
PROVIDERS: ADMIT Internal Medicine; ATTEND Internal Medicine
DX: K72.00 Acute and subacute hepatic failure without coma (principal); I21.4 Non-ST elevation (NSTEMI) myocardial infarction; I50.43 Acute on chronic combined systolic (congestive) and diastolic (congestive) heart failure; N17.9 Acute kidney failure, unspecified; R18.8 Other ascites; I48.20 Chronic atrial fibrillation, unspecified; I13.0 Hypertensive heart and chronic kidney disease with heart failure and stage 1 through stage 4 chronic kidney disease, or unspecified chronic kidney disease; J98.11 Atelectasis; J90 Pleural effusion, not elsewhere classified; N18.4 Chronic kidney disease, stage 4 (severe); K74.60 Unspecified cirrhosis of liver; I25.10 Atherosclerotic heart disease of native coronary artery without angina pectoris; E78.00 Pure hypercholesterolemia, unspecified; R79.1 Abnormal coagulation profile; I95.9 Hypotension, unspecified; I99.8 Other disorder of circulatory system; T45.515A Adverse effect of anticoagulants, initial encounter; Z95.1 Presence of aortocoronary bypass graft; Z90.49 Acquired absence of other specified parts of digestive tract; G47.33 Obstructive sleep apnea (adult) (pediatric); Z87.891 Personal history of nicotine dependence; Z95.810 Presence of automatic (implantable) cardiac defibrillator; I25.2 Old myocardial infarction; M19.90 Unspecified osteoarthritis, unspecified site; G89.29 Other chronic pain; M54.9 Dorsalgia, unspecified; F32.A Depression, unspecified; D64.9 Anemia, unspecified; E87.5 Hyperkalemia; Z79.82 Long term (current) use of aspirin; Z79.01 Long term (current) use of anticoagulants; Z79.4 Long term (current) use of insulin; Z79.899 Other long term (current) drug therapy
CPT/HCPCS: 36415; 71045; 80053; 82947; 83690; 83735; 83880; 84100; 84484; 85007; 85027; 85610; 85730; 93005; 93041; 94640; 94664